=== PATIENT | male | born 1945 | race Caucasian/White ===

== ENCOUNTER → 2018-05-07 15:25 | Outpatient (CLI) | payer MEDICARE, OTHER, SELFPAY ==
--- NOTE | 2018-05-07 | DI.MRI.S_ITS ---
PROCEDURE: MR BRAIN (IAC) WWO CON INDICATIONS: ASSYMETRICAL HEARING LOSS TECHNIQUE: Noncontrast sagittal T1 spin echo, axial FLAIR, axial gradient echo, axial diffusion and ADC through the brain. Axial thin-slice 3D CISS, coronal TruFISP, axial T1 spin echo with fat saturation through the internal auditory canals. After the administration of contrast, thin slice axial and coronal T1 spin echo with fat saturation through the internal auditory canals, and axial T1 spin echo with fat saturation through the brain. COMPARISON: None. FINDINGS: Image quality: Excellent. Cerebellopontine angles: No cerebellopontine angle masses. Inner ear structures appear normally formed. No suspicious enhancement in the internal auditory canal or along the course of the 7th cranial nerve. CSF spaces: Ventricles are normal in size and shape. No extra-axial fluid collections. Basal cisterns are patent. Brain: No intracranial bleeds or mass effects. An-white matter interface is intact. No abnormal intracranial enhancement. Thorax muscle ischemic change is seen. Age-appropriate brain parenchymal volume loss can be seen. Diffusion weighted images demonstrate no acute ischemic insults. Brainstem appears normal. Normal intravascular flow voids are present. Skull and face: There is a scalp defect incidentally noted superiorly and posteriorly on the right, as on series 9 image 10. Calvarial marrow signal is normal. Orbits appear normal. Sinuses: Sinuses and mastoids are clear. IMPRESSION: No significant intracranial abnormality is seen. Specifically, no masses or abnormal enhancement are seen within the cerebellopontine angle cisterns or within the internal auditory canals. Note is made of age-appropriate brain parenchymal volume loss and chronic small vessel ischemic changes. A scalp defect is incidentally noted superiorly and posteriorly on the right. Dictated by: Chan Colbert M.D. on 05/07/2018 at 16:40 Approved by: Chan Colbert M.D. on 05/07/2018 at 16:42
[2018-05-07 16:07] LABS: BUN Creatinine Ratio 16.7 (6-22); Blood Urea Nitrogen 20 mg/dL (9-20); Estimated Glomerular Filt Rate 59.7 mL/min (>60)
== END ==
PROVIDERS: PCP Physician Assistant Medical; Visit Provider Otolaryngology
DX: H91.8X9 Other specified hearing loss, unspecified ear (principal)
CPT/HCPCS: 36415; 70553; 82565; 84520

== ENCOUNTER → 2018-08-10 12:51 | Outpatient (CLI) | payer MEDICARE, OTHER, SELFPAY ==
--- NOTE | 2018-08-10 | DI.MRI.S_ITS ---
PROCEDURE: MR ELBOW RT WO CON INDICATIONS: RIGHT WRIST PAIN, LATERAL EPICONDYLITIS RIGHT TECHNIQUE: Noncontrast coronal proton density fast spin echo and T2 fast spin echo with fat saturation, axial and sagittal T1 spin echo and T2 fast spin echo with fat saturation through the elbow. COMPARISON: [facility] [place], CR, XR ELBOW 1 OR 2 VIEWS RIGHT, 09/10/2017, 9:11. FINDINGS: Image quality: Excellent. Lateral structures: The lateral ulnar collateral ligament and radial collateral ligament both appear intact. Thickened common extensor tendon origin at the lateral epicondyle is seen with internal fluid signals suggestive of tendinosis and low-grade intrasubstance partial-thickness tear Medial structures: The ulnar collateral ligament appears intact. The overlying common flexor tendon appears normal. The ulnar nerve appears normal in size and signal within the cubital tunnel. Anterior structures: The biceps and brachialis tendons both appear intact as they insert onto the proximal radius and ulna, respectively. No bicipitoradial bursal fluid. The median and radial neurovascular bundles appear normal; no focal muscle atrophy to suggest nerve impingement. Posterior structures: The conjoint triceps tendon from the long and lateral heads appears intact. The medial head of the triceps tendon also appears normal, with direct muscle insertion onto the olecranon. Small amount of fluid distending the olecranon bursa is seen with surrounding soft tissue edema concerning for mild olecranon bursitis. Bone and cartilage: No bone marrow contusions or fractures. No osteochondral injuries. IMPRESSION: 1. Tendinosis and low-grade intrasubstance partial-thickness tear involving the common extensor tendon origin, consistent with lateral epicondylitis. Lateral collateral ligaments are intact. 2. Mild fluid distention of olecranon bursa suggestive of mild lacunar bursitis. 3. No marrow signal abnormality. No fracture or dislocation. Dictated by: Mati Shaffer M.D. on 08/10/2018 at 15:33 Approved by: Mati Shaffer M.D. on 08/10/2018 at 15:40
--- NOTE | 2018-08-10 | DI.MRI.S_ITS ---
PROCEDURE: MR WRIST RT WO CON INDICATIONS: RIGHT WRIST PAIN, LATERAL EPICONDYLITIS RIGHT TECHNIQUE: Noncontrast coronal proton density fast spin echo and T2 fast spin echo with fat saturation; coronal 3-D gradient echo, axial T1 spin echo and T2 fast spin echo with fat saturation, sagittal T1 spin echo through the wrist. COMPARISON: None. FINDINGS: Image quality: Excellent. Bones and cartilage: The carpal bones are normally aligned. No bone marrow contusions or fractures. No evidence for avascular necrosis. Osteoarthritic changes are noted throughout wrist joints particularly along radial aspect. Carpal ligaments: The scapholunate and lunotriquetral ligaments appear intact. In the absence of intra-articular contrast, the extrinsic carpal ligaments are not well identified. On sagittal images, the pisohamate ligament appears intact. Triangular fibrocartilage complex: Signal abnormality involving ulnar aspect of regular fibrocartilage complex near its ulnar insertion is seen concerning for a focal tear in this region. The adjacent meniscal homolog appears normal in the absence of intra-articular contrast. The extensor carpi ulnaris tendon is normal in location and morphology. Tendons and soft tissues: The carpal tunnel structures appear normal, including the median nerve. The ulnar nerve appears normal within Guyon's canal. All six extensor tendon compartments demonstrate normal morphology, without pathologic tendon sheath fluid. No soft tissue ganglion cysts. IMPRESSION: 1. Finding may represent subtle focal tear involving the medial aspect of the triangular fibrocartilage complex near its ulnar insertion. 2. Wrist tendons and ligaments are grossly intact. 3. No wrist fracture or dislocation. No marrow edema. Osteoarthritic changes throughout wrist joints particularly along radial aspect. Dictated by: Mati Shaffer M.D. on 08/10/2018 at 15:25 Approved by: Mati Shaffer M.D. on 08/10/2018 at 15:33
== END ==
PROVIDERS: PCP Physician Assistant Medical; Referring Provider Family Medicine; Visit Provider Physician Assistant Medical
DX: M25.531 Pain in right wrist (principal); M77.11 Lateral epicondylitis, right elbow; M19.031 Primary osteoarthritis, right wrist
CPT/HCPCS: 73221

== ENCOUNTER → 2018-08-13 08:32 | Outpatient (CLI) | payer MEDICARE, OTHER, SELFPAY ==
--- NOTE | 2018-08-13 | DI.ECHO.S_ITS ---
[facility]---------+ [facility] +---------+ : : [address] : : : : [phone] : : : : Phone: [phone]+ Echocardiogram Report + + :Name: YOKO ARTIS Study Date: 08/13/2018 Height: 70 in : :[facility] Weight: 160 lb : : Gender: Male BSA: 1.9 m2 : :: 1945 Age: 73 yrs BP: 132/80 mmHg: :Reason For Study: Arrhythmia, SVT : : Performed By: Deepthi Gutierrez : :Referring: MARTHA WOOTEN : + + Interpretation Summary The left ventricle is normal in size, wall thickness, and systolic function without any focal wall motion abnormalities with the ejection fraction visually estimated to be 55-60%. There has been no significant change since the previous study. Diastolic parameters suggest a relaxation abnormality of the left ventricle, new compared to the previous study, but still consistent with probable normal filling pressures. The right ventricle grossly appears normal in size with probable normal systolic function and his unchanged compared to the previous study. The right ventricular systolic pressure is estimated to be at least 29 mmHg based on an estimated right atrial pressure of 3 mm Hg, and is unchanged compared to the previous study. The left atrium is borderline dilated while right atrial size is normal and both are unchanged compared to the previous study. There is mild mitral regurgitation that is unchanged compared to the previous study but there is no other significant valvular heart disease. The ascending aorta is moderate-severely enlarged and measures 4.6 cm which is mildy increased from last exam at 4.4 cm although there were limited views due to the patients lung infiltration. The aortic arch is mild-moderately enlarged and also measures slightly larger compared to the previous study. Procedure: A two-dimensional transthoracic echocardiogram with color flow and Doppler was performed. The study quality was technically adequate. Comparison is made with the echocardiogram of 07-02-17. The patient was in normal sinus rhythm during the exam. Left Ventricle: The left ventricle is normal in size, wall thickness, and systolic function without any focal wall motion abnormalities. The ejection fraction is estimated to be 55-60%. There has been no significant change since the previous study. Diastolic parameters suggest a relaxation abnormality of the left ventricle, consistent with probable normal filling pressures. This is new compared to the previous study. Right Ventricle: The right ventricle grossly appears normal in size with probable normal systolic function. This is unchanged compared to the previous study. Atria: The left atrium is borderline dilated. Right atrial size is normal. This is unchanged compared to the previous study. The interatrial septum is intact with no evidence for an atrial septal defect. Mitral Valve: The mitral valve is normal in structure and function. There is mild mitral regurgitation. This is unchanged compared to the previous study. Aortic Valve: The aortic valve is not well visualized. There is mild aortic valve sclerosis. The aortic valve opens well. There is no aortic valve stenosis. No aortic regurgitation is present. Tricuspid Valve: The tricuspid valve leaflets are thin and pliable. There is trace tricuspid regurgitation. This is unchanged compared to the previous study. The right ventricular systolic pressure is estimated to be at least 29 mmHg based on an estimated right atrial pressure of 3 mm Hg. Pulmonic Valve: The pulmonic valve is not well visualized. There is no other significant valvular heart disease. Great Vessels: The aortic root is normal size. The ascending aorta is moderate-severely enlarged. Ascending aorta measures 4.6 cm which is mildy increased from last exam at 4.4 cm. There were limited views due to the patients lung infiltration. The aortic arch is mild-moderately enlarged. This is also measures slightly larger compared to the previous study. The IVC is of normal diameter and collapses greater than 50% with a sniff. This suggests a low right atrial pressure of 3 mm Hg. Pericardium/ Pleura There is no pericardial effusion. There is no pleural effusion. MMode/2D Measurements & Calculations LVIDd: 4.5 cm Ao root diam: 3.5 cm LVIDs: 2.6 cm Aortic Jxn: 3.3 cm FS: 42.2 % asc Aorta Diam: 4.5 cm IVSd: 0.88 cm Ao Arch Diam (Prox Trans): 3.5 cm LVPWd: 0.79 cm LV lanlgey. diameter/BSA (cm/m^2): 2.4 LV sys. diameter/BSA (cm/m^2): 1.4 LA dimension: 4.1 cm RA long axis: 4.8 cm LA A2 area: 20.3 cm2 RA area: 17.0 cm2 LA A4 area: 17.7 cm2 RA vol: 51.5 ml LA length (vol): 5.2 cm RA : 27.1 ml/m2 LA vol: 59.4 ml IVC diam: 1.4 cm LA vol index: 31.3 ml/m2 RVDd major: 5.9 cm RVD1 (basal): 3.3 cm RVD2 (mid): 2.4 cm Doppler Measurements & Calculations Ao V2 max: 183.4 cm/sec MV E max elgin: 53.9 cm/sec Ao V2 mean: 120.8 cm/sec MV A max elgin: 75.9 cm/sec Ao max P.5 mmHg MV E/A: 0.71 Ao mean P.8 mmHg Med Peak E' Elgin: 7.9 cm/sec Ao V2 VTI: 39.5 cm E/E' med: 6.8 Lat Peak E' Elgin: 8.9 cm/sec E/E' lat: 6.0 E/e' average: 6.4 MV dec time: 0.38 sec MV P1/2t: 110.8 msec TR max elgin: 253.8 cm/sec MV P1/2t max elgin: 53.5 cm/sec TR max P.8 mmHg MVA(P1/2t): 2.0 cm2 Reading Physician:KATELYNN
== END ==
PROVIDERS: PCP Physician Assistant Medical; Referring Provider Family Medicine; Visit Provider Internal Medicine Cardiovascular Disease
DX: I47.1 Supraventricular tachycardia (principal); I08.0 Rheumatic disorders of both mitral and aortic valves
CPT/HCPCS: 93306; 99213

== ENCOUNTER → 2018-08-20 09:46 | Outpatient (CLI) | payer MEDICARE, OTHER, SELFPAY ==
--- NOTE | 2018-08-20 09:51 | DI.RAD.S_ITS ---
PROCEDURE: XR LUMBAR SPINE MIN 4V INDICATIONS: Lumbosacral spondylosis post елена TECHNIQUE: 5 views of the lumbar spine were acquired. COMPARISON: [facility] [place], CR, SPINE LUMB 2 OR 3VW, 11/04/2013, 13:32. FINDINGS: Bones: 5 nonrib-bearing vertebrae are present. Redemonstration of levocurvature of the upper lumbar spine. No acute vertebral body compression fractures. Multilevel lumbar spondylosis with degenerative endplate changes and endplate osteophyte formation most pronounced at T12-L1, L1-L2, L2-L3, and L5-S1. Surgical clips are again noted adjacent to the right lateral margin of the L2 vertebral body. No suspicious bony lesions. Soft tissues: Overlying bowel gas pattern is normal. No suspicious soft tissue calcifications. Oblique images: No pars defects. IMPRESSION: Multilevel lumbar spondylosis. No acute osseous abnormalities. Dictated by: Aroldo Juarez M.D. on 08/20/2018 at 10:30 Approved by: Aroldo Juarez M.D. on 08/20/2018 at 10:34
--- NOTE | 2018-08-20 09:51 | DI.RAD.S_ITS ---
PROCEDURE: XR KNEE LT 3V INDICATIONS: Left Knee degenerative joint disease TECHNIQUE: 3 views of the knee were acquired. COMPARISON: None. FINDINGS: Bones: No fractures or dislocations. Minimal tricompartmental degenerative change most pronounced in the medial and patellofemoral compartments. No suspicious bony lesions. Soft tissues: No joint effusion. No suspicious soft tissue calcifications. IMPRESSION: Minimal tricompartmental osteoarthrosis of the left knee most pronounced in the medial and patellofemoral compartments. Dictated by: Aroldo Juarez M.D. on 08/20/2018 at 10:26 Approved by: Aroldo Juarez M.D. on 08/20/2018 at 10:29
== END ==
PROVIDERS: Family Provider Family Medicine; PCP Physician Assistant Medical; Visit Provider Physical Medicine & Rehabilitation
DX: M47.817 Spondylosis without myelopathy or radiculopathy, lumbosacral region (principal); M47.816 Spondylosis without myelopathy or radiculopathy, lumbar region; M17.12 Unilateral primary osteoarthritis, left knee; M96.1 Postlaminectomy syndrome, not elsewhere classified
CPT/HCPCS: 72110; 73562

== ENCOUNTER → 2018-11-17 09:16 | Outpatient (CLI) | payer MEDICARE, OTHER, SELFPAY ==
--- NOTE | 2018-11-17 | DI.CT.S_ITS ---
PROCEDURE: CT ABDOMEN PELVIS W CON INDICATIONS: ABDOMINAL PAIN/SUPRAPUBIC TECHNIQUE: After the administration of oral and intravenous contrast, 5 mm thick sections acquired from the diaphragms to the symphysis. 5 mm thick coronal and sagittal reformats were performed. For radiation dose reduction, the following was used: automated exposure control, adjustment of mA and/or kV according to patient size. COMPARISON: [facility], , PELVIS WITHOUT CONTRAST, 11/09/2007, 16:42. FINDINGS: Image quality: Excellent. ABDOMEN: Lung bases: There is mild scarring and atelectasis in the lung bases. Heart size is normal. Solid organs: There is a small hypodensity in the left hepatic lobe measuring up to 0.6 cm which is too small to characterize but likely represents a cyst. Gallbladder appears within normal limits without calcified gallstones. Biliary system is non-dilated. There is a small hypoattenuating cystic lesion within the uncinate process of the pancreas measuring up to 0.8 cm. Spleen is normal in size and enhancement. No adrenal nodules. Kidneys are normal in size and enhancement, without hydronephrosis. Peritoneum and bowel: Stomach and small bowel loops are normal in caliber and wall thickness. There is colonic diverticulosis. Mild segmental wall thickening with pericolonic fat stranding is demonstrated in the sigmoid colon consistent with a segmental colitis, likely secondary to diverticulitis. No diverticular abscess or macroscopic free air. Moderate colonic stool distention noted suggestive of constipation. No evidence of mechanical obstruction. Nodes and vessels: No retroperitoneal or mesenteric adenopathy. Aorta and inferior vena cava are normal in caliber. Miscellaneous: No ventral hernias. PELVIS: Genitourinary: Bladder wall thickness is normal. There is heterogeneous enlargement of the prostate. Miscellaneous: No inguinal hernias or adenopathy. Bones: No suspicious bony lesions. No vertebral body compression fractures. IMPRESSION: 1. Sigmoid diverticulitis without evidence of diverticular abscess or macroscopic free air. 2. 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 Recommend followup CT in 12 months. Findings discussed with YAN Conn on 11/17/18 at 11 AM. Dictated by: Glenn Corley M.D. on 11/17/2018 at 10:58 Approved by: Glenn Corley M.D. on 11/17/2018 at 11:05
== END ==
PROVIDERS: Family Provider Family Medicine; PCP Physician Assistant Medical; Visit Provider Physician Assistant Medical
DX: R10.30 Lower abdominal pain, unspecified (principal); K57.32 Diverticulitis of large intestine without perforation or abscess without bleeding
CPT/HCPCS: 74177

== ENCOUNTER → 2019-08-17 07:55 | Outpatient (CLI) | payer MEDICARE, SELFPAY ==
--- NOTE | 2019-08-17 | DI.ECHO.S_ITS ---
[facility]---------+ [facility] +---------+ : : [address] : [address] : : : : [phone] : : : : Phone: [phone]+ Echocardiogram Report + + :Name: YOKO ARTIS Study Date: 08/17/2019 Height: 70 in : :[facility] Weight: 170 lb : : Gender: Male BSA: 1.9 m2 : :: 1945 Age: 74 yrs BP: 134/90 mmHg: :Reason For Study: ASCENDING AORTA DILITATION : :Ordering Physician: Jalyn Valle M.D. : :[place] Performed By: LRF : :Referring: Dr. Sinan Maxwell : + + Interpretation Summary The left ventricle is normal in size and wall thickness. The ejection fraction is estimated to be 60-65%. There has been no significant change in LVEF since the previous study. The right ventricle is normal in size and function. There is mild mitral regurgitation. Compared to the prior echo study, there has been no change in the severity of mitral regurgitation. In previous study aortic valve was not well visualized. In this study aortic valve appears to be bicuspid. No aortic stenosis. No aortic regurgitation is present. The ascending aorta is moderate-severely enlarged. 4.7 cm in diameter. In August 13, 2018 it was 4.6 cm. June 2017 it was 4.4 cm. Procedure: A two-dimensional transthoracic echocardiogram with color flow and Doppler was performed. Comparison is made with the echocardiogram of 08/13/2018. The study quality was technically adequate. The patient was in sinus bradycardia with heart rates between 47-52 bpm during the exam. Left Ventricle: The left ventricle is normal in size and wall thickness. There is no thrombus. A false chord is noted (normal variant). The ejection fraction is estimated to be 60-65%. There has been no significant change since the previous study. There are no focal wall motion abnormalities. Diastolic parameters suggest a relaxation abnormality of the left ventricle, consistent with probable normal filling pressures. Right Ventricle: The right ventricle is normal in size and function. Atria: Both atria are normal in size. There has been no significant change since the previous study. There is no Doppler evidence for an interatrial shunt. Mitral Valve: The mitral valve is normal in structure and function. Redundant elongated chordae are noted. There is mild mitral regurgitation. Compared to the prior echo study, there has been no change in the severity of mitral regurgitation. Aortic Valve: The aortic valve is bicuspid. There is mild aortic valve sclerosis. The aortic valve opens well. There is no aortic valve stenosis. No aortic regurgitation is present. Tricuspid Valve: The tricuspid valve is normal in structure and function. There is trace tricuspid regurgitation. Pulmonary artery pressures cannot be estimated because of the lack of a measurable TR jet velocity. Pulmonic Valve: The pulmonic valve is not well visualized. There is no pulmonic valvular regurgitation. Great Vessels: The aortic root is normal size. The ascending aorta is moderate-severely enlarged. The IVC is of normal diameter and collapses greater than 50% with a sniff. This suggests a low right atrial pressure of 3 mm Hg. MMode/2D Measurements & Calculations LVIDd: 4.9 cm LVOT diam: 2.1 cm LVIDs: 3.3 cm Ao root diam: 3.9 cm FS: 34.1 % Aortic Jxn: 3.5 cm EPSS: 0.47 cm asc Aorta Diam: 4.7 cm IVSd: 1.0 cm LVPWd: 1.0 cm LV langley. diameter/BSA (cm/m^2): 2.5 LV sys. diameter/BSA (cm/m^2): 1.7 LA A2 area: 21.0 cm2 RA long axis: 4.7 cm LA A4 area: 15.2 cm2 RA area: 15.7 cm2 LA length (vol): 4.5 cm RA vol: 44.4 ml LA vol: 60.4 ml RA : 22.8 ml/m2 LA vol index: 31.0 ml/m2 IVC diam: 1.9 cm RVD1 (basal): 3.4 cm RVD2 (mid): 2.9 cm TAPSE: 2.7 cm Doppler Measurements & Calculations Ao V2 max: 181.0 cm/sec LVOT Max Elgin: 99.0 cm/sec Ao V2 mean: 123.8 cm/sec LV V1 max P.9 mmHg Ao max P.1 mmHg LV V1 VTI: 25.2 cm Ao mean P.1 mmHg DIETER(I,D): 1.8 cm2 Ao V2 VTI: 48.5 cm DIETER(V,D): 1.9 cm2 sev ratio: 0.52 DIETER indexed to BSA (cm^2/m^2): 0.93 MV E max elgin: 55.5 cm/sec PA V2 max: 61.1 cm/sec MV A max elgin: 59.1 cm/sec PA V2 mean: 42.0 cm/sec MV E/A: 0.94 PA mean P.81 mmHg Med Peak E' Elgin: 5.1 cm/sec PA pr(Accel): 12.5 mmHg E/E' med: 11.0 Lat Peak E' Elgin: 8.0 cm/sec E/E' lat: 6.9 E/e' average: 8.9 MV dec time: 0.29 sec MV P1/2t: 85.3 msec MV P1/2t max elgin: 55.2 cm/sec SV(LVOT): 87.8 ml MVA(P1/2t): 2.6 cm2 Reading Physician:06:07 PM
== END ==
PROVIDERS: Family Provider Family Medicine; PCP Family Medicine; Referring Provider Internal Medicine Cardiovascular Disease; Visit Provider Internal Medicine Cardiovascular Disease
DX: I08.0 Rheumatic disorders of both mitral and aortic valves (principal); I77.810 Thoracic aortic ectasia; R00.1 Bradycardia, unspecified
CPT/HCPCS: 93306

== ENCOUNTER → 2020-03-13 09:43 | Outpatient (CLI) | payer MEDICARE, SELFPAY ==
--- NOTE | 2020-03-13 09:45 | DI.RAD.S_ITS ---
PROCEDURE: XR CERVICAL SPINE 4V OR 5V INDICATIONS: Cervical radiculopathy TECHNIQUE: 5 views of the cervical spine acquired. COMPARISON: None. FINDINGS: Bones: No fractures or dislocations to the C7-T1 level. Degenerative endplate changes and decreased intervertebral disc space at C4-5 through C6-7 levels are seen. Oblique images demonstrate right-sided bony foraminal stenosis at C4-5 and C5-6 levels and left-sided bony foraminal stenosis at C5-6 and C6-7 levels. Soft tissues: No prevertebral soft tissue swelling. IMPRESSION: Degenerative disc disease in mid to lower cervical spine with bilateral bony foraminal stenosis as above. No acute fracture or dislocation. Dictated by: Mati Shaffer M.D. on 03/13/2020 at 10:17 Approved by: Mati Shaffer M.D. on 03/13/2020 at 10:18
--- NOTE | 2020-03-13 09:45 | DI.RAD.S_ITS ---
PROCEDURE: XR KNEE RT 3V INDICATIONS: knee djd TECHNIQUE: 3 views of the knee were acquired. COMPARISON: [facility] [place], CR, XR KNEE ARTHRITIC SERIES BI, 05/14/2017, 7:48. [facility], CR, XR KNEE LT 3V, 08/20/2018, 10:06. FINDINGS: Bones: No acute fractures or dislocations. Stable appearance of moderate tricompartmental osteoarthrosis of the right knee. Stable appearance of chondrocalcinosis of the lateral femoral tibial compartment. No suspicious bony lesions. Soft tissues: No joint effusion. No suspicious soft tissue calcifications. IMPRESSION: Stable radiographic appearance of moderate tricompartmental osteoarthrosis of the right knee. Dictated by: Aroldo Juarez M.D. on 03/13/2020 at 14:56 Approved by: Aroldo Juarez M.D. on 03/13/2020 at 15:02
== END ==
PROVIDERS: Family Provider Family Medicine; PCP Family Medicine; Referring Provider Physical Medicine & Rehabilitation; Visit Provider Physical Medicine & Rehabilitation
DX: M50.121 Cervical disc disorder at C4-C5 level with radiculopathy (principal); M48.02 Spinal stenosis, cervical region; M17.11 Unilateral primary osteoarthritis, right knee; M77.11 Lateral epicondylitis, right elbow; M96.1 Postlaminectomy syndrome, not elsewhere classified; Z90.5 Acquired absence of kidney
CPT/HCPCS: 72050; 73562; 99214

== ENCOUNTER → 2020-03-21 13:09 | Outpatient (CLI) | payer MEDICARE, SELFPAY ==
--- NOTE | 2020-03-21 13:11 | DI.MRI.S_ITS ---
PROCEDURE: MR CERVICAL SPINE WO CON INDICATIONS: Cervical radiculopathy TECHNIQUE: Noncontrast sagittal T1 spin echo and T2 fast spin echo, sagittal STIR, foraminal oblique sagittal T2 fast spin echo, and axial gradient echo or T2 fast spin echo through the cervical spine. COMPARISON: [facility], , C-SPINE WITHOUT CONTRAST, 12/19/2015, 6:56. FINDINGS: Image quality: Excellent. Alignment and Curvature: There is mild, grade 1 retrolisthesis of C6 on C7. Bone Marrow: Marrow demonstrates normal overall signal. There is mild reactive signal within the endplates adjacent to the C2-C3, C3-C4, C5-C6, C6-C7, and C7-T1 intervertebral discs. Spinal Cord: Visualized spinal cord has normal size and signal. No cerebellar tonsillar herniation. Paraspinous Soft Tissues: No paravertebral masses. Prevertebral soft tissues are normal in thickness. C2-C3: Moderate disc desiccation. Mild diffuse disc bulge. Mild facet and uncovertebral hypertrophy bilaterally. Mild canal stenosis. Mild bilateral foraminal stenosis. No change. C3-C4: Moderate disc desiccation. Mild facet and uncovertebral hypertrophy bilaterally. Mild canal stenosis. Moderate right and severe left foraminal stenosis. Left C4 nerve root compression. No change. C4-C5: Moderate disc desiccation. Mild diffuse disc bulge. Moderate facet and uncovertebral hypertrophy bilaterally. Mild canal stenosis. Moderate bilateral foraminal stenosis. No change. C5-C6: Moderate disc desiccation. Mild disc height loss. Mild diffuse disc bulge. Moderate facet and uncovertebral hypertrophy bilaterally. Mild canal stenosis. Severe left and moderate right foraminal stenosis. Left C6 nerve root compression. No change. C6-C7: Moderate disc height loss and desiccation. Mild diffuse disc bulge. Moderate facet and uncovertebral hypertrophy bilaterally. Mild canal stenosis. Moderate bilateral foraminal stenosis. No change. C7-T1: Moderate disc height loss and desiccation. Mild diffuse disc bulge. Mild facet and uncovertebral hypertrophy bilaterally. Mild canal stenosis. Moderate bilateral foraminal stenosis. No change. IMPRESSION: 1. Multilevel degenerative disc and facet disease, as well as uncovertebral hypertrophy. 2. Mild multilevel canal stenosis. 3. Multilevel foraminal stenoses, worst at C3-C4 and C5-C6, where there is associated intraforaminal nerve root compression. Recommend correlation with clinical symptoms to ascertain relevance of these findings. Dictated by: Mabel Oneal M.D. on 03/21/2020 at 15:09 Approved by: Mabel Oneal M.D. on 03/21/2020 at 15:16
== END ==
PROVIDERS: Family Provider Family Medicine; PCP Family Medicine; Referring Provider Physical Medicine & Rehabilitation; Visit Provider Physical Medicine & Rehabilitation
DX: M50.11 Cervical disc disorder with radiculopathy, high cervical region (principal); M48.02 Spinal stenosis, cervical region
CPT/HCPCS: 72141

== ENCOUNTER → 2020-04-27 09:04 | Outpatient (CLI) | payer MEDICARE, SELFPAY ==
[2020-04-27 10:16] LABS: Hematocrit 45.7 % (41-53); Hemoglobin 15.3 g/dL (13.5-17.5); Mean Corpuscular HGB Conc 33.4 % (30-36); Mean Corpuscular Hemoglobin 28.7 PG (26-34); Mean Corpuscular Volume 85.9 fL (80-100); Platelet Count 149 X10^3/uL (150-400); Red Blood Cell Count 5.32 X10^6/uL (4.5-5.9); Red Cell Distribution Width 13.8 % (11.6-14.8); White Blood Cell Count 4.6 X10^3/uL (4.5-11.0)
[2020-04-27 10:23] LABS: Hemoglobin A1C% w Est Avg Glu 5.4 % (4.0-6.0)
[2020-04-27 10:27] LABS: Alanine Aminotransferase 15 IU/L (<50); Albumin 4.2 g/dL (3.5-5.0); Albumin Globulin Ratio 1.7 (1.0-2.8); Alkaline Phosphatase 59 U/L (38-126); Aspartate Aminotransferase 24 IU/L (17-59); BUN Creatinine Ratio 17.3 (6-22); Bilirubin Total 0.9 mg/dL (0.2-1.3); Blood Urea Nitrogen 22 mg/dL (9-20); Calcium 9.4 mg/dL (8.4-10.2); Carbon Dioxide 30 mmol/L (22-32); Chloride 106 mmol/L (98-107); Cholesterol 167 mg/dL (140-199); Estimated Glomerular Filt Rate 55.6 mL/min (>60); Globulin 2.5 g/dL (1.7-4.1); Glucose 100 mg/dL (80-110); HDL Cholesterol 53 mg/dL (40-60); HEMOLYSIS < 15 (0-50); LDL Cholesterol Calculated 96 mg/dL (<100); Potassium 4.3 mmol/L (3.4-5.1); Sodium 142 mmol/L (137-145); Total Protein 6.7 g/dL (6.3-8.2); Triglycerides 91 mg/dL (35-150)
[2020-04-28 10:29] LABS: PSA Free % 26.1 % (.); PSA, Total 8.5 ng/mL (0.0-4.0)
== END ==
PROVIDERS: Family Provider Family Medicine; PCP Family Medicine; Referring Provider Family Medicine; Visit Provider Family Medicine
DX: R97.20 Elevated prostate specific antigen [PSA] (principal); I10 Essential (primary) hypertension; N28.9 Disorder of kidney and ureter, unspecified
CPT/HCPCS: 36415; 80053; 80061; 83036; 84153; 84154; 85027

== ENCOUNTER → 2020-10-12 09:10 | Outpatient (CLI) | payer MEDICARE, SELFPAY ==
--- NOTE | 2020-10-12 09:11 | DI.RAD.S_ITS ---
PROCEDURE: XR KNEE RT 3V INDICATIONS: RIGHT KNEE PAIN TECHNIQUE: 3 views of the knee were acquired. COMPARISON: [facility], , XR KNEE RT 3V, 03/13/2020, 9:45. FINDINGS: Bones: No fractures or dislocations. 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 No suspicious bony lesions. No patellar subluxation. Soft tissues: No significant joint effusion. Chondrocalcinosis in medial and lateral femoral tibial compartments are also seen. 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 Chondrocalcinosis in medial and lateral femoral tibial compartments. No significant joint effusion. Dictated by: Mati Shaffer M.D. on 10/12/2020 at 9:29 Approved by: Mati Shaffer M.D. on 10/12/2020 at 9:30
== END ==
PROVIDERS: Family Provider Family Medicine; PCP Family Medicine; Referring Provider Physical Medicine & Rehabilitation; Visit Provider Physical Medicine & Rehabilitation
DX: M17.11 Unilateral primary osteoarthritis, right knee (principal)
CPT/HCPCS: 73562

== ENCOUNTER → 2020-10-27 09:18 | Outpatient (CLI) | payer MEDICARE, SELFPAY ==
[2020-10-27 09:52] LABS: BUN Creatinine Ratio 12.8 (6-22); Blood Urea Nitrogen 17 mg/dL (9-20); Estimated Glomerular Filt Rate 52.7 mL/min (>60)
--- NOTE | 2020-10-27 10:38 | DI.CT.S_ITS ---
PROCEDURE: CT ABDOMEN W CON INDICATIONS: Abnormal findings on diagnostic imaging of other abdominal r TECHNIQUE: After the administration of intravenous contrast, 5 mm thick sections acquired from the diaphragm to the iliac crests. 5 mm coronal and sagittal reformats were performed. For radiation dose reduction, the following was used: automated exposure control, adjustment of mA and/or kV according to patient size. COMPARISON: [facility], CT, CT ABDOMEN PELVIS W CON, 11/17/2018, 10:39. FINDINGS: Image quality: Excellent. Lung bases: Lung bases are clear. Heart size is normal. Solid organs: Liver is normal in size and enhancement. Gallbladder appears normal . Biliary system is non dilated. Pancreas enhances normally, and again noted is the posterior uncinate process margin hypodensity that is triangular and measures 7-8 mm in maximal dimension. This has not enlarged and no side branch dilatation of a pancreatic duct or dilatation of the main pancreatic duct is found. Spleen is normal in size and enhancement. No adrenal nodules. The left kidney demonstrates normal size and enhancement, without hydronephrosis. The right kidney is surgically absent. There is a 8 mm calcification within the mid left renal collecting system, nonobstructive. Peritoneum and bowel: Bowel loops demonstrate normal wall thickness and caliber. No free fluid or air. Nodes and vessels: No retroperitoneal or mesenteric adenopathy by size criteria. Aorta and inferior vena cava are normal in size. Miscellaneous: No ventral hernias. 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 Other structures could produce this appearance also. IPMN follow-up at this point would be 10 years of follow-up every 2 years, and could be performed utilizing noncontrast MR scanning technique beginning in 2 years from now Incidental note is made of a 8 mm maximal dimension renal collecting system calculus that is nonobstructive, seen at the left mid kidney. Prior right nephrectomy. Dictated by: Wilber Triana M.D. on 10/27/2020 at 15:09 Approved by: Wilber Triana M.D. on 10/27/2020 at 15:17
== END ==
PROVIDERS: Family Provider Family Medicine; PCP Family Medicine; Referring Provider Internal Medicine Gastroenterology; Visit Provider Internal Medicine Gastroenterology
DX: R93.5 Abnormal findings on diagnostic imaging of other abdominal regions, including retroperitoneum (principal); M17.0 Bilateral primary osteoarthritis of knee; M54.12 Radiculopathy, cervical region; Z90.5 Acquired absence of kidney
CPT/HCPCS: 36415; 74160; 82565; 84520; 99214; Q9967

== ENCOUNTER → 2020-11-13 09:00 | Outpatient (CLI) | payer MEDICARE, SELFPAY ==
--- NOTE | 2020-11-13 | DI.ECHO.S_ITS ---
[facility]---------+ [facility] +---------+ : : [address] [place] : : : : [id number] : : : : Phone: [phone]+ Echocardiogram Report + + :Name: YOKO ARTIS Study Date: 11/13/2020 Height: 70 in : :[facility] ReadingLocation: Weight: 165 lb : : Gender: Male BSA: 1.9 m2 : :: 1945 Age: 75 yrs BP: 142/78 mmHg: :Reason For Study: THORACIC AORTIC ECTASIA : :Ordering Physician: SUGAR, : :MARTHA Performed By: Oralia Zhu : :Referring: MARTHA WOOTEN : + + Interpretation Summary Asc Ao measuring 4.3cm in parasternal window. Asc Ao measures 4.6cm in apical 3 chamber view. August 2019 it was 4.7 cm and in July 2018, 4.6 cm in diameter. The left ventricle is normal in size and wall thickness. The ejection fraction is estimated to be 55-60%. The right ventricle is normal in size and function. There is mild to moderate mitral regurgitation. Compared to the prior echo study, there has been an increase in the severity of mitral regurgitation. The aortic valve is bicuspid. There is no aortic valve stenosis. No aortic regurgitation is present. There is mild tricuspid regurgitation. The right ventricular systolic pressure is estimated to be at least 25 mmHg based on an estimated right atrial pressure of 3 mm Hg. Procedure: A two-dimensional transthoracic echocardiogram with color flow and Doppler was performed. The study quality was technically adequate. Comparison is made with the echocardiogram of 08/17/2019. The patient was in sinus bradycardia with heart rates between 45-54 bpm during the exam. Left Ventricle: The left ventricle is normal in size and wall thickness. There is no thrombus. The ejection fraction is estimated to be 55-60%. There are no focal wall motion abnormalities. MV E/A: 1.0 Med Peak E' Elgin: 7.6 cm/sec E/E' med: 8.8. Right Ventricle: The right ventricle is normal in size and function. Atria: Both atria are normal in size. There is no Doppler evidence for an interatrial shunt. Mitral Valve: The mitral valve is normal. There is mild to moderate mitral regurgitation. Compared to the prior echo study, there has been an increase in the severity of mitral regurgitation. Aortic Valve: The aortic valve is bicuspid. There is mild aortic valve sclerosis. The aortic valve opens well. There is no aortic valve stenosis. No aortic regurgitation is present. Tricuspid Valve: The tricuspid valve is normal. There is mild tricuspid regurgitation. The right ventricular systolic pressure is estimated to be at least 25 mmHg based on an estimated right atrial pressure of 3 mm Hg. Pulmonic Valve: The pulmonic valve is not well seen, but is grossly normal. There is trace pulmonic regurgitation. Great Vessels: The aortic root is normal size. The IVC is of normal diameter and collapses greater than 50% with a sniff. This suggests a low right atrial pressure of 3 mm Hg. Pericardium/ Pleura There is no pericardial effusion. There is no pleural effusion. MMode/2D Measurements & Calculations LVIDd: 4.8 cm LVOT diam: 2.0 cm LVIDs: 3.1 cm Ao Arch Diam (Prox Trans): 2.9 cm FS: 36.3 % EPSS: 0.29 cm IVSd: 0.82 cm LVPWd: 0.93 cm LV langley. diameter/BSA (cm/m^2): 2.5 LV sys. diameter/BSA (cm/m^2): 1.6 LA A2 area: 22.5 cm2 RA long axis: 4.6 cm LA A4 area: 14.1 cm2 RA area: 16.0 cm2 LA length (vol): 4.4 cm RA vol: 47.5 ml LA vol: 61.9 ml RA : 24.7 ml/m2 LA vol index: 32.2 ml/m2 IVC diam: 2.0 cm RVD1 (basal): 2.9 cm TAPSE: 2.7 cm Doppler Measurements & Calculations Ao V2 max: 156.2 cm/sec LVOT Max Elgin: 92.3 cm/sec Ao V2 mean: 113.5 cm/sec LV V1 max P.4 mmHg Ao max P.8 mmHg LV V1 VTI: 22.0 cm Ao mean P.7 mmHg DIETER(I,D): 1.8 cm2 Ao V2 VTI: 37.3 cm DIETER(V,D): 1.8 cm2 sev ratio: 0.59 DIETER indexed to BSA (cm^2/m^2): 0.94 MV E max elgin: 66.6 cm/sec TR max elgin: 231.9 cm/sec MV A max elgin: 65.7 cm/sec TR max P.5 mmHg MV E/A: 1.0 PA pr(Accel): 41.3 mmHg Med Peak E' Elgin: 7.6 cm/sec E/E' med: 8.8 Lat Peak E' Elgin: 6.5 cm/sec E/E' lat: 10.3 E/e' average: 9.5 MV dec time: 0.24 sec SV(LVOT): 67.4 ml Reading Physician:11:11 AM
== END ==
PROVIDERS: Family Provider Family Medicine; PCP Family Medicine; Referring Provider Physician Assistant Medical; Visit Provider Internal Medicine Cardiovascular Disease
DX: I08.1 Rheumatic disorders of both mitral and tricuspid valves (principal); I77.810 Thoracic aortic ectasia
CPT/HCPCS: 93306

== ENCOUNTER → 2021-01-03 06:41 | Outpatient (CLI) | payer MEDICARE, SELFPAY ==
--- NOTE | 2021-01-03 | DI.MRI.S_ITS ---
PROCEDURE: MR STROKE Pre- and post-contrast brain MRI, non-contrast brain MR angiogram, pre- and postcontrast neck MR angiogram INDICATIONS: MR STROKE TECHNIQUE: Brain: Noncontrast axial T1 spin echo, axial T2 fast spin echo, sagittal and axial FLAIR, coronal T2 fast spin echo, axial gradient echo, axial diffusion and ADC through the brain. After the administration of contrast, axial 3D VIBE of the cranial vasculature and brain. Brain MRA: Non-contrast 3-D time of flight MR angiogram, with multiple fhhhims-uooojwnbg-qiahxwnsrz (MIP) reformats performed. Neck MRA: Axial and sagittal TruFISP through the neck. Coronal dynamic MR angiogram during administration of contrast in the arterial and venous phases, with 3-dimenstional gwtlhjw-whqvmxzwv-wdspqdfxlr (MIP) reformats constructed from subtraction images. COMPARISON: None. FINDINGS: Image quality: Excellent. BRAIN: CSF spaces: Ventricles are normal in size and shape. Basal cisterns are patent. No extra-axial fluid collections. Brain: No intracranial bleeds or mass effects. There is mild diffuse cerebral volume loss. Mild degree of patchy high FLAIR signal within the periventricular and subcortical white matter. Scattered small chronic infarcts within the bilateral periventricular and subcortical white matter of the frontal and parietal lobes predominantly. An-white matter interface is normal. Diffusion weighted images show no acute ischemic insults. Brainstem appears normal. Normal intravascular flow voids are present. No abnormal intracranial enhancement. Skull and face: Calvarial marrow signal is normal. Orbits appear normal. Sinuses: Sinuses and mastoids are clear. BRAIN MR ANGIOGRAM: Anterior circulation: Intracranial internal carotid arteries are normal in size and enhancement. The flow within the paired anterior cerebral arteries is normal and symmetric. The flow within the middle cerebral arteries is normal and symmetric. The anterior communicating artery is seen. No stenoses, occlusions, or aneurysms. Posterior circulation: The visualized portions of the vertebral arteries demonstrate normal caliber, and join to form a normal appearing basilar artery. The flow within the posterior cerebral arteries is normal and symmetric. No stenoses, occlusions, or aneurysms. NECK MR ANGIOGRAM: Carotids: Great vessels demonstrate a conventional anatomy as they arise from the aortic arch. The origins of the common carotid arteries appear patent. The calibers and courses of both common carotid arteries are normal. The bifurcation regions appear normal bilaterally. The internal carotid arteries demonstrate normal course and caliber. Posterior circulation: The origins of the vertebral arteries appear patent. More superior portions of both vertebral arteries demonstrate normal course and caliber, and join to form a normal appearing basilar artery. Miscellaneous: Subclavian arteries appear patent. Pre-contrast images through the neck show no soft tissue abnormalities. IMPRESSION: BRAIN MRI: 1. No acute intracranial abnormality. No recent infarct. 2. Volume loss and small vessel ischemic disease. BRAIN MR ANGIOGRAM: Negative cerebral MR angiography. NECK MR ANGIOGRAM: 1. No internal carotid artery stenosis bilaterally. 2. Patent bilateral vertebral arteries. Dictated by: Mabel Oneal M.D. on 01/03/2021 at 9:17 Approved by: Mabel Oneal M.D. on 01/03/2021 at 9:31
== END ==
PROVIDERS: Family Provider Family Medicine; PCP Family Medicine; Referring Provider Psychiatry & Neurology Neurology; Visit Provider Psychiatry & Neurology Neurology
DX: G45.9 Transient cerebral ischemic attack, unspecified (principal); G43.109 Migraine with aura, not intractable, without status migrainosus; G43.009 Migraine without aura, not intractable, without status migrainosus; E55.9 Vitamin D deficiency, unspecified; G25.2 Other specified forms of tremor
CPT/HCPCS: 70548; 70553

== ENCOUNTER 2021-02-23 10:56 | Observation (INO) | payer MEDICARE, SELFPAY ==
[2021-02-23] VITALS (29 sets, daily range): BP systolic 142–194; BP diastolic 68–106; PULSE 49–66; RESP 11–21; TEMP 36.6; O2SAT 92–100; BMI 23.6
[2021-02-23 11:33] LABS: Add Manual Diff / Slide Review NO; Basophils Absolute Auto 0 /uL (0-100); Basophils Percent Auto 0.7 % (0-2); Eosinophils Absolute Auto 200 /uL (0-450); Eosinophils Percent Auto 3.5 % (2-4); Hematocrit 41.7 % (41-53); Hemoglobin 13.9 g/dL (13.5-17.5); Lymphocytes Absolute Auto 1400 /uL (1100-4500); Lymphocytes Percent Auto 24.5 % (25-40); Mean Corpuscular HGB Conc 33.2 % (30-36); Mean Corpuscular Hemoglobin 28.4 PG (26-34); Mean Corpuscular Volume 85.5 fL (80-100); Monocytes Absolute Auto 600 /uL (0-900); Monocytes Percent Auto 10.1 % (3-14); Neutrophils Absolute Auto 3600 /uL (1500-7000); Neutrophils Percent Auto 61.2 % (50-75); Platelet Count 164 X10^3/uL (150-400); Red Blood Cell Count 4.88 X10^6/uL (4.5-5.9); Red Cell Distribution Width 13.7 % (11.6-14.8); White Blood Cell Count 5.8 X10^3/uL (4.5-11.0)
[2021-02-23 11:39] LABS: INR 1.1 (0.9-1.3); Prothrombin Time 12.6 SECONDS (10.1-12.7)
[2021-02-23 11:41] LABS: PTT Partial Thromboplastin Tim 52 SECONDS (26.4-36.2)
[2021-02-23 11:43] LABS: Alanine Aminotransferase 14 IU/L (<50); Albumin 3.8 g/dL (3.5-5.0); Albumin Globulin Ratio 1.5 (1.0-2.8); Alkaline Phosphatase 62 U/L (38-126); Aspartate Aminotransferase 25 IU/L (17-59); BUN Creatinine Ratio 15.3 (6-22); Bilirubin Total 0.9 mg/dL (0.2-1.3); Blood Urea Nitrogen 17 mg/dL (9-20); Calcium 9.5 mg/dL (8.4-10.2); Carbon Dioxide 24 mmol/L (22-32); Chloride 111 mmol/L (98-107); Creatine Kinase 115 U/L (55-170); Estimated Glomerular Filt Rate > 60.0 mL/min (>60); Globulin 2.6 g/dL (1.7-4.1); Glucose 108 mg/dL (80-110); HEMOLYSIS < 15 (0-50); Potassium 4.1 mmol/L (3.4-5.1); Sodium 140 mmol/L (137-145); Total Protein 6.4 g/dL (6.3-8.2)
[2021-02-23 11:55] LABS: Troponin I < 0.012 ng/mL (0.01-0.034)
[2021-02-23 11:58] LABS: CKMB % Relative Index 0.6 % (1.5-5.0); Creatine Kinase MB 0.67 ng/mL (<2.37)
--- NOTE | 2021-02-23 13:07 | DI.CT.S_ITS ---
PROCEDURE: CT HEAD/BRAIN WO CON INDICATIONS: told had a stroke, left [place] AMA. not tpa candidate. TECHNIQUE: Noncontrast 4.5 mm thick angled axial sections acquired from the foramen magnum to the vertex, with coronal and sagittal reformats. For radiation dose reduction, the following was used: automated exposure control, adjustment of mA and/or kV according to patient size. COMPARISON: MR, MR BRAIN (IAC) WWO CON, 05/07/2018, 16:29. FINDINGS: Image quality: Excellent. CSF spaces: Basal cisterns are patent. No extra-axial fluid collections. The ventricles are symmetric in size and shape. Brain: No intracranial bleeds or masses. There is cerebral volume loss for age, with resultant ventricular and sulcal prominence. There are periventricular and deep white matter chronic small vessel ischemic changes. Multifocal most of low-attenuation are noted within the right frontal lobe. There is intracranial internal carotid artery atherosclerosis. Skull and face: Calvarium and visualized facial bones appear intact, without suspicious lesions. Sinuses: Visualized sinuses and mastoids are clear. IMPRESSION: 1. Multifocal areas of low attenuation within the right frontal lobe suspected to be late subacute/early chronic ischemia. MRI may be obtained as clinically indicated for further evaluation. 2. Atrophy and chronic microvascular ischemic changes are present. Dictated by: Daniela Bahena M.D. on 02/23/2021 at 13:27 Approved by: Daniela Bahena M.D. on 02/23/2021 at 13:30
--- NOTE | 2021-02-23 13:27 | DI.MRI.S_ITS ---
PROCEDURE: MR STROKE Pre- and post-contrast brain MRI, non-contrast brain MR angiogram, pre- and postcontrast neck MR angiogram INDICATIONS: right sided weakness TECHNIQUE: Brain: Noncontrast axial T1 spin echo, axial T2 fast spin echo, sagittal and axial FLAIR, coronal T2 fast spin echo, axial gradient echo, axial diffusion and ADC through the brain. After the administration of contrast, axial 3D VIBE of the cranial vasculature and brain. Brain MRA: Non-contrast 3-D time of flight MR angiogram, with multiple ycsqlvj-iiybvjmuz-byelalttzf (MIP) reformats performed. Neck MRA: Axial and sagittal TruFISP through the neck. Coronal dynamic MR angiogram during administration of contrast in the arterial and venous phases, with 3-dimenstional cultvbk-puzkixupw-iawmjjnwmy (MIP) reformats constructed from subtraction images. COMPARISON: [facility], MR, MR BRAIN (IAC) WWO CON, 05/07/2018, 16:29. [facility], CT, CT HEAD/BRAIN WO CON, 02/23/2021, 13:15. [facility], MR, MR STROKE, 01/03/2021, 6:52. FINDINGS: Image quality: Excellent. BRAIN: CSF spaces: Ventricles are normal in size and shape. Basal cisterns are patent. No extra-axial fluid collections. Brain: There are areas abnormal diffusion-weighted signal seen involving the right deep white matter, as on series 25, image 66 and involving the left basal ganglia and the left thalamus, as on series 25, images 62 through 65. There is associated abnormal dark signal seen at these sites. There is developing T2 weighted signal seen within these regions. No intracranial bleeds or mass effects. An-white matter interface is normal. Brainstem appears normal. Normal intravascular flow voids are present. No abnormal intracranial enhancement. Brain parenchymal volume loss is seen. Numerous areas of T2 weighted hyperintensity can be seen within the periventricular and deep white matter. A few of the periventricular lesions demonstrate a perpendicular orientation to the lateral ventricles. There is involvement of the corpus callosum. Relatively prominent perivascular spaces are noted. Note is made of a cavum septum pellucidum. When discovered in isolation, this is considered to be a developmental variant of no clinical consequence. Skull and face: Calvarial marrow signal is normal. Orbits appear normal. There is a right lens replacement seen. Sinuses: Sinuses and mastoids are clear. BRAIN MR ANGIOGRAM: Anterior circulation: Intracranial internal carotid arteries are normal in size and enhancement. The flow within the paired anterior cerebral arteries is normal and symmetric. The flow within the middle cerebral arteries is normal and symmetric. The anterior communicating artery is seen. No stenoses, occlusions, or aneurysms. Posterior circulation: The visualized portions of the vertebral arteries demonstrate normal caliber, and join to form a normal appearing basilar artery. The flow within the posterior cerebral arteries is normal and symmetric. No stenoses, occlusions, or aneurysms. NECK MR ANGIOGRAM: Carotids: Great vessels demonstrate a conventional anatomy as they arise from the aortic arch. The origins of the common carotid arteries appear patent. The calibers and courses of both common carotid arteries are normal. The bifurcation regions appear normal bilaterally. The internal carotid arteries demonstrate normal course and caliber. Posterior circulation: Approximately 50% narrowing can be seen involving the origins of both vertebral arteries. More superior portions of both vertebral arteries demonstrate normal course and caliber, and join to form a normal appearing basilar artery. Miscellaneous: Subclavian arteries appear patent. Pre-contrast images through the neck show no soft tissue abnormalities. IMPRESSION: BRAIN MRI: Bilateral subacute infarctions are seen. Brain parenchymal volume loss is seen. Areas abnormal T2 weighted hyperintensity can be seen. While these are statistically most likely related to chronic small vessel ischemic change, the appearance and configuration are also be compatible with multiple sclerosis. Please correlate with underlying patient history. BRAIN MR ANGIOGRAM: No significant intracranial arterial abnormality is seen. NECK MR ANGIOGRAM: Within the arteries of the neck, no hemodynamically significant stenosis can be seen. Dictated by: Chan Colbert M.D. on 02/23/2021 at 14:37 Approved by: Chan Colbert M.D. on 02/23/2021 at 14:46
--- NOTE | 2021-02-23 13:43 | ED.NEUROSD ---
HPI - Neuro Symptoms/Deficit <Aquiles Schreiber PA-C - Last Filed: 02/23/21 20:51> General Chief Complaint: Neuro Symptoms/Deficit Stated Complaint: STROKE. DR RAO TOLD HIM TO COME IN Time Seen by Provider: 02/23/21 13:07 Source: patient Mode of arrival: Wheelchair Limitations: no limitations History of Present Illness HPI Narrative: Jacek presents today with chief complaint of right-sided arm and leg weakness that started at 8:30 p.m. last night. He reports that his symptoms were initially noted when he was getting into the car and had difficulty lifting his leg and grasping the handle of the door. He went [facility] later that evening and a CT scan was done which did not show any significant ischemic changes. He was consulted with neurology and recommended to be admitted to the hospital for further risk stratification. MRI was not able to be done until Friday so the patient elected to leave against medical advice. It does not look like any blood thinners were started on the patient at this time. He denies any significant change in his symptoms since they started yesterday evening. He is still having difficulty walking with his right leg and has slight increased weakness in his right arm. Denies any difficulty speaking, chest pain, shortness of breath, palpitations, vision changes, or any other acute concerns or complaints at this time. On Anticoagulants: No (asa) Related Data Home Medications Medication Instructions Recorded Confirmed tamsulosin 0.4 mg capsule (Flomax) 0.4 mg PO QDAY #0 12/29/16 01/01/21 carvedilol 12.5 mg tablet 12.5 mg PO .COMPLEX 08/13/18 01/01/21 aspirin 81 mg tablet,delayed 81 mg PO DAILY 01/01/21 01/01/21 release (Adult Aspirin Regimen) cholecalciferol (vitamin D3) 50 50 mcg PO DAILY 01/01/21 01/01/21 mcg (2,000 unit) capsule vitamin B complex 1 tab PO DAILY 01/01/21 01/01/21 Previous Rx's Medication Instructions Recorded amlodipine 5 mg tablet 5 mg PO DAILY #30 tab 02/24/21 atorvastatin 20 mg tablet (Lipitor) 80 mg PO BEDTIME #30 tab 02/24/21 carvedilol 12.5 mg tablet (Coreg) 12.5 mg PO BEDTIME #30 tab 02/24/21 clopidogrel 75 mg tablet 75 mg PO DAILY #21 tab 02/24/21 Allergies Allergy/AdvReac Type Severity Reaction Status Date / Time oxycillin prostaphlyn Allergy Unknown Uncoded 02/23/21 11:01 Review of Systems <Aquiles Schreiber PA-C - Last Filed: 02/23/21 20:51> Review of Systems Narrative: As per HPI Hematologic/Lymphatic On Anticoagulants: No (asa) Patient History <Aquiles Schreiber PA-C - Last Filed: 02/23/21 20:51> Medical History Cervical radiculopathy Ocular migraine Right knee DJD TIA (transient ischemic attack) Surgical History History of nephrectomy, right Family History Mother Congestive heart failure Father CVA (cerebral vascular accident) Social History household members: spouse Smoking Status: Former smoker Smoking Status: Former smoker alcohol intake frequency: holidays/special occasions only Substance Use Type: does not use Exam <Aquiles Schreiber PA-C - Last Filed: 02/23/21 20:51> Narrative Exam Narrative: Exam Narrative: Const General: cooperative, healthy appearing, comfortable, no acute distress, well developed and well groomed Nutritional Appearance: average body habitus Orientation: alert and oriented x3 HENMT Head: normal to inspection and atraumatic Ears: hearing grossly normal bilaterally Nose: external nose normal and nares normal Face and sinus: normal facial exam Neck Neck: normal visual inspection and supple Resp Effort & Inspection: normal respiratory effort, able to speak in complete sentences, no audible wheezes, not labored, no nasal flaring and no respiratory distress, clear to auscultation bilaterally Cardiac Regular rate and rhythm, no discernible murmurs, rubs or gallops. Neuro General: alert, oriented x3, cranial nerves grossly intact. No sensory deficits noted. Has impairment with finger to nose using the right arm. Stroke scale charted below and he scores a 3 due to right arm weakness, and right leg weakness. Impaired rapid alternating movement of right upper extremity. Cognition: normal cognition Speech: speech normal Psych Appearance: grossly normal and well kempt Mental Status: mental status grossly normal Speech and Movement: speech and movement normal Mood: congruent mood Affect: normal affect Initial Vital Signs Initial Vital Signs: Vital Signs Temperature 97.9 F 02/23/21 11:01 Pulse Rate 66 02/23/21 11:01 Respiratory Rate 14 02/23/21 11:01 Blood Pressure 163/96 H 02/23/21 11:01 Pulse Oximetry 96 02/23/21 11:01 <DO Constance Elizondo Last Filed: 03/02/21 07:31> Initial Vital Signs Initial Vital Signs: Vital Signs Temperature 97.9 F 02/23/21 11:01 Pulse Rate 66 02/23/21 11:01 Respiratory Rate 14 02/23/21 11:01 Blood Pressure 163/96 H 02/23/21 11:01 Pulse Oximetry 96 02/23/21 11:01 Scores <Aquiles Schreiber PA-C - Last Filed: 02/23/21 20:51> NIH Stroke Scale Level of Conciousness: Alert, keenly responsive Ask month/age: Answers both questions correctly. Open/close eyes, close hand: Performs both tasks correctly Best gaze horizontal: Normal Visual banuelos: No visual loss Facial palsy: Normal symetrical movement Left arm drift: No drift for full 10 sec Right arm drift: Drifts down, not to bed Left leg drift: No drift for full 5 sec Right leg drift: Drifts down, not to bed Limb ataxia: Present in one limb Sensory on face/arms/legs: Normal, no sensory loss Best language: No aphasia, normal Dysarthria: Normal Extinction or inattention: No abnormality Total NIH Stroke scale score: 3 <DO Constance Elizondo Last Filed: 03/02/21 07:31> NIH Stroke Scale Total NIH Stroke scale score: 3 Course <INGA Patel Last Filed: 02/23/21 20:51> Orders Ordered: Discontinued Medications Aspirin (Aspirin 325 Mg Tablet) 325 mg PO NOW ONE Stop: 02/23/21 13:53 Last Admin: 02/23/21 14:04 Dose: 325 mg Documented by: JANICE Aspirin (Aspirin Ec 81 Mg Tablet) 81 mg PO DAILY [facility] Last Admin: 02/24/21 09:26 Dose: 81 mg Documented by: IVAN Atorvastatin Calcium (Atorvastatin 20 Mg Tablet) 80 mg PO BEDTIME [facility] Last Admin: 02/23/21 20:53 Dose: Not Given Documented by: PIERRE Carvedilol (Carvedilol 12.5 Mg Tablet) 18.75 mg PO DAILY@0800 [facility] Last Admin: 02/24/21 09:24 Dose: Not Given Documented by: IVAN Carvedilol (Carvedilol 12.5 Mg Tablet) 12.5 mg PO BEDTIME [facility] Last Admin: 02/23/21 20:53 Dose: 12.5 mg Documented by: PIERRE Clopidogrel Bisulfate (Clopidogrel 75 Mg Tablet) 75 mg PO DAILY [facility] Last Admin: 02/24/21 09:27 Dose: 75 mg Documented by: IVAN Enoxaparin Sodium (Enoxaparin 40 Mg/0.4 Ml Syringe) 40 mg SUBCUT DAILY [facility] Last Admin: 02/24/21 09:27 Dose: 40 mg Documented by: IVAN Naloxone HCl (Naloxone 0.4 Mg/Ml Vial) 0.2 mg IV Q2MIN PRN PRN Reason: Opiate Reversal Tamsulosin HCl (Tamsulosin 0.4 Mg Capsule) 0.4 mg PO DAILY [facility] Last Admin: 02/24/21 09:27 Dose: 0.4 mg Documented by: IVAN Vital Signs Vital signs: Vital Signs - 8 hr 02/23/21 13:00 02/23/21 13:01 02/23/21 13:19 Pulse Rate 53 L 53 L 59 L Respiratory Rate 21 16 Blood Pressure 173/86 H 150/106 H Pulse Oximetry 97 97 98 02/23/21 13:30 02/23/21 14:03 02/23/21 14:04 Pulse Rate 51 L 56 L 60 Respiratory Rate Blood Pressure 151/91 H 173/93 H Pulse Oximetry 96 92 97 02/23/21 14:30 Pulse Rate 58 L Respiratory Rate Blood Pressure 151/91 H Pulse Oximetry 98 <Katherine Lam, - Last Filed: 03/02/21 07:31> Orders Ordered: Discontinued Medications Aspirin (Aspirin 325 Mg Tablet) 325 mg PO NOW ONE Stop: 02/23/21 13:53 Last Admin: 02/23/21 14:04 Dose: 325 mg Documented by: JANICE Aspirin (Aspirin Ec 81 Mg Tablet) 81 mg PO DAILY [facility] Last Admin: 02/24/21 09:26 Dose: 81 mg Documented by: IVAN Atorvastatin Calcium (Atorvastatin 20 Mg Tablet) 80 mg PO BEDTIME [facility] Last Admin: 02/23/21 20:53 Dose: Not Given Documented by: PIERRE Carvedilol (Carvedilol 12.5 Mg Tablet) 18.75 mg PO DAILY@0800 [facility] Last Admin: 02/24/21 09:24 Dose: Not Given Documented by: IVAN Carvedilol (Carvedilol 12.5 Mg Tablet) 12.5 mg PO BEDTIME [facility] Last Admin: 02/23/21 20:53 Dose: 12.5 mg Documented by: PIERRE Clopidogrel Bisulfate (Clopidogrel 75 Mg Tablet) 75 mg PO DAILY [facility] Last Admin: 02/24/21 09:27 Dose: 75 mg Documented by: IVAN Enoxaparin Sodium (Enoxaparin 40 Mg/0.4 Ml Syringe) 40 mg SUBCUT DAILY [facility] Last Admin: 02/24/21 09:27 Dose: 40 mg Documented by: IVAN Naloxone HCl (Naloxone 0.4 Mg/Ml Vial) 0.2 mg IV Q2MIN PRN PRN Reason: Opiate Reversal Tamsulosin HCl (Tamsulosin 0.4 Mg Capsule) 0.4 mg PO DAILY [facility] Last Admin: 02/24/21 09:27 Dose: 0.4 mg Documented by: IVAN Vital Signs Vital signs: Vital Signs - 8 hr 02/23/21 13:00 02/23/21 13:01 02/23/21 13:19 Pulse Rate 53 L 53 L 59 L Respiratory Rate 21 16 Blood Pressure 173/86 H 150/106 H Pulse Oximetry 97 97 98 02/23/21 13:30 02/23/21 14:03 02/23/21 14:04 Pulse Rate 51 L 56 L 60 Respiratory Rate Blood Pressure 151/91 H 173/93 H Pulse Oximetry 96 92 97 02/23/21 14:30 Pulse Rate 58 L Respiratory Rate Blood Pressure 151/91 H Pulse Oximetry 98 MDM - Neuro Symptoms/Deficit <Aquiles Schreiber PA-C - Last Filed: 02/23/21 20:51> Lab Data Result diagrams: 02/24/21 05:00 02/23/21 20:25 Labs: Lab Results 02/23/21 02/23/21 02/23/21 Range/Units 11:20 11:20 11:20 WBC 5.8 (4.5-11.0) X10^3/uL RBC 4.88 (4.5-5.9) X10^6/uL Hgb 13.9 (13.5-17.5) g/dL Hct 41.7 (41-53) % MCV 85.5 (80-100) fL MCH 28.4 (26-34) PG MCHC 33.2 (30-36) % RDW 13.7 (11.6-14.8) % Plt Count 164 (150-400) X10^3/uL Neut % (Auto) 61.2 (50-75) % Lymph % (Auto) 24.5 L (25-40) % [place] % (Auto) 10.1 (3-14) % Eos % (Auto) 3.5 (2-4) % Baso % (Auto) 0.7 (0-2) % Neut # (Auto) 3600 (7867-7351) /uL Lymph # (Auto) 1400 (5390-6351) /uL [place] # (Auto) 600 (0-900) /uL Eos # (Auto) 200 (0-450) /uL Baso # (Auto) 0 (0-100) /uL PT 12.6 (10.1-12.7) SECONDS INR 1.1 (0.9-1.3) APTT 52 H (26.4-36.2) SECONDS Sodium 140 (137-145) mmol/L Potassium 4.1 (3.4-5.1) mmol/L Chloride 111 H (98-107) mmol/L Carbon Dioxide 24 (22-32) mmol/L BUN 17 (9-20) mg/dL Creatinine 1.11 (0.66-1.25) mg/dL Estimated GFR > 60.0 (>60) mL/min BUN/Creatinine Ratio 15.3 (6-22) Glucose 108 (80-110) mg/dL Hemoglobin A1c (4.0-6.0) % Calcium 9.5 (8.4-10.2) mg/dL Total Bilirubin 0.9 (0.2-1.3) mg/dL AST 25 (17-59) IU/L ALT 14 (<50) IU/L Alkaline Phosphatase 62 (38-126) U/L Total Creatine Kinase 115 (55-170) U/L CK-MB (CK-2) 0.67 (<2.37) ng/mL CK-MB (CK-2) Rel Index 0.6 L (1.5-5.0) % Troponin I < 0.012 (0.01-0.034) ng/mL Total Protein 6.4 (6.3-8.2) g/dL Albumin 3.8 (3.5-5.0) g/dL Globulin 2.6 (1.7-4.1) g/dL Albumin/Globulin Ratio 1.5 (1.0-2.8) 02/23/21 Range/Units 11:20 WBC (4.5-11.0) X10^3/uL RBC (4.5-5.9) X10^6/uL Hgb (13.5-17.5) g/dL Hct (41-53) % MCV (80-100) fL MCH (26-34) PG MCHC (30-36) % RDW (11.6-14.8) % Plt Count (150-400) X10^3/uL Neut % (Auto) (50-75) % Lymph % (Auto) (25-40) % [place] % (Auto) (3-14) % Eos % (Auto) (2-4) % Baso % (Auto) (0-2) % Neut # (Auto) (7315-8773) /uL Lymph # (Auto) (5212-4931) /uL [place] # (Auto) (0-900) /uL Eos # (Auto) (0-450) /uL Baso # (Auto) (0-100) /uL PT (10.1-12.7) SECONDS INR (0.9-1.3) APTT (26.4-36.2) SECONDS Sodium (137-145) mmol/L Potassium (3.4-5.1) mmol/L Chloride (98-107) mmol/L Carbon Dioxide (22-32) mmol/L BUN (9-20) mg/dL Creatinine (0.66-1.25) mg/dL Estimated GFR (>60) mL/min BUN/Creatinine Ratio (6-22) Glucose (80-110) mg/dL Hemoglobin A1c 5.2 (4.0-6.0) % Calcium (8.4-10.2) mg/dL Total Bilirubin (0.2-1.3) mg/dL AST (17-59) IU/L ALT (<50) IU/L Alkaline Phosphatase (38-126) U/L Total Creatine Kinase (55-170) U/L CK-MB (CK-2) (<2.37) ng/mL CK-MB (CK-2) Rel Index (1.5-5.0) % Troponin I (0.01-0.034) ng/mL Total Protein (6.3-8.2) g/dL Albumin (3.5-5.0) g/dL Globulin (1.7-4.1) g/dL Albumin/Globulin Ratio (1.0-2.8) Urine Dip Bedside Urine Glucose Negative Bedside Urine Bilirubin - Negative Bedside Urine Ketone - Negative Urine Specific [place] 1.015 Bedside Urine Occult Blood +/- Bedside Urine pH 6 Bedside Urine Protein - Negative Bedside Urine Urobilinogen - Negative Bedside Urine Nitrite - Negative Bedside Urine Leukocytes - Negative Esterase MDM Narrative Medical decision making narrative: This patient is outside of the window for tPA. We will admit the patient for continued risk stratification and further diagnostic testing. I discussed this case with the hospitalist and she agreed to the plan. All of this was discussed with both the patient and his and they both verbalized understanding and agreement. <Katherine Lam, DO - Last Filed: 03/02/21 07:31> Lab Data Labs: Lab Results 02/23/21 02/23/21 02/23/21 Range/Units 11:20 11:20 11:20 WBC 5.8 (4.5-11.0) X10^3/uL RBC 4.88 (4.5-5.9) X10^6/uL Hgb 13.9 (13.5-17.5) g/dL Hct 41.7 (41-53) % MCV 85.5 (80-100) fL MCH 28.4 (26-34) PG MCHC 33.2 (30-36) % RDW 13.7 (11.6-14.8) % Plt Count 164 (150-400) X10^3/uL Neut % (Auto) 61.2 (50-75) % Lymph % (Auto) 24.5 L (25-40) % [place] % (Auto) 10.1 (3-14) % Eos % (Auto) 3.5 (2-4) % Baso % (Auto) 0.7 (0-2) % Neut # (Auto) 3600 (5956-6308) /uL Lymph # (Auto) 1400 (2476-2127) /uL [place] # (Auto) 600 (0-900) /uL Eos # (Auto) 200 (0-450) /uL Baso # (Auto) 0 (0-100) /uL PT 12.6 (10.1-12.7) SECONDS INR 1.1 (0.9-1.3) APTT 52 H (26.4-36.2) SECONDS Sodium 140 (137-145) mmol/L Potassium 4.1 (3.4-5.1) mmol/L Chloride 111 H (98-107) mmol/L Carbon Dioxide 24 (22-32) mmol/L BUN 17 (9-20) mg/dL Creatinine 1.11 (0.66-1.25) mg/dL Estimated GFR > 60.0 (>60) mL/min BUN/Creatinine Ratio 15.3 (6-22) Glucose 108 (80-110) mg/dL Hemoglobin A1c (4.0-6.0) % Calcium 9.5 (8.4-10.2) mg/dL Total Bilirubin 0.9 (0.2-1.3) mg/dL AST 25 (17-59) IU/L ALT 14 (<50) IU/L Alkaline Phosphatase 62 (38-126) U/L Total Creatine Kinase 115 (55-170) U/L CK-MB (CK-2) 0.67 (<2.37) ng/mL CK-MB (CK-2) Rel Index 0.6 L (1.5-5.0) % Troponin I < 0.012 (0.01-0.034) ng/mL Total Protein 6.4 (6.3-8.2) g/dL Albumin 3.8 (3.5-5.0) g/dL Globulin 2.6 (1.7-4.1) g/dL Albumin/Globulin Ratio 1.5 (1.0-2.8) 02/23/21 Range/Units 11:20 WBC (4.5-11.0) X10^3/uL RBC (4.5-5.9) X10^6/uL Hgb (13.5-17.5) g/dL Hct (41-53) % MCV (80-100) fL MCH (26-34) PG MCHC (30-36) % RDW (11.6-14.8) % Plt Count (150-400) X10^3/uL Neut % (Auto) (50-75) % Lymph % (Auto) (25-40) % [place] % (Auto) (3-14) % Eos % (Auto) (2-4) % Baso % (Auto) (0-2) % Neut # (Auto) (4408-1825) /uL Lymph # (Auto) (7252-4308) /uL [place] # (Auto) (0-900) /uL Eos # (Auto) (0-450) /uL Baso # (Auto) (0-100) /uL PT (10.1-12.7) SECONDS INR (0.9-1.3) APTT (26.4-36.2) SECONDS Sodium (137-145) mmol/L Potassium (3.4-5.1) mmol/L Chloride (98-107) mmol/L Carbon Dioxide (22-32) mmol/L BUN (9-20) mg/dL Creatinine (0.66-1.25) mg/dL Estimated GFR (>60) mL/min BUN/Creatinine Ratio (6-22) Glucose (80-110) mg/dL Hemoglobin A1c 5.2 (4.0-6.0) % Calcium (8.4-10.2) mg/dL Total Bilirubin (0.2-1.3) mg/dL AST (17-59) IU/L ALT (<50) IU/L Alkaline Phosphatase (38-126) U/L Total Creatine Kinase (55-170) U/L CK-MB (CK-2) (<2.37) ng/mL CK-MB (CK-2) Rel Index (1.5-5.0) % Troponin I (0.01-0.034) ng/mL Total Protein (6.3-8.2) g/dL Albumin (3.5-5.0) g/dL Globulin (1.7-4.1) g/dL Albumin/Globulin Ratio (1.0-2.8) Urine Dip Bedside Urine Glucose Negative Bedside Urine Bilirubin - Negative Bedside Urine Ketone - Negative Urine Specific [place] 1.015 Bedside Urine Occult Blood +/- Bedside Urine pH 6 Bedside Urine Protein - Negative Bedside Urine Urobilinogen - Negative Bedside Urine Nitrite - Negative Bedside Urine Leukocytes - Negative Esterase Discharge Plan Departure Patient Disposition: Home Clinical Impression: Cerebrovascular accident Qualifiers: CVA mechanism: unspecified Qualified Code(s): I63.9 - Cerebral infarction, unspecified <Katherine Lam DO - Last Filed: 03/02/21 07:31> Cosign ED Attending Coscristianature Attestation: I was immediately available in the department for consultation. Documentation has been reviewed. Case was discussed. ASA given. Patient far outside window for intervention. Admitted for risk factor modification additional work up.
[2021-02-23] MEDS: ASPIRIN 325 MG TABLET PO (14:04)
[2021-02-23 16:57] LABS: COVID19 - ADMIT (NP swab/PCR) Negative (Negative)
--- NOTE | 2021-02-23 18:40 | P.HP_ITS ---
History of Present Illness History of Present Illness Date Patient Seen: 02/23/21 Time Patient Seen: 17:30 Chief complaint: CVA, Neurologist, Dr. Gill told him to come in Narrative: Jacek Mercer is a 76 y.o. male who presented to the ED with a chief complaint of right-sided arm and leg weakness that started at 8:30 p.m. last night. He reports that his symptoms were initially noted when he was getting into the car and had difficulty lifting his leg and grasping the handle of the door. He then had his drive him to [facility] emergency department later that evening and per the patient, a CT scan was done which did not show any significant ischemic changes. He was consulted with neurology and recommended to be admitted to the hospital for further risk stratification. MRI was not able to be done until Friday so the patient elected to leave against medical advice. It does not look like any blood thinners were started on the patient at that time. He has a history of having had a TIA a month ago and had been seeing Dr. Gill, Neurologist, contacted their office and they directed him back to the ED. He denies any significant change in his symptoms since they started yesterday evening. He continues to have difficulty walking with his right leg and states it gives out on him. He has increased weakness in his right arm he states which is improving. Denies any difficulty speaking, chest pain, shortness of breath, palpitations, vision changes, or any other acute concerns or complaints at this time. Denies n/v, dysurea, urinary or stool incontinence or numbing, tingling or weakness of his left upper or lower extremeties. During his January 03 visit for a TIA, at that time his brain MRI only suggested small vessel disease with no acute findings. MRI of the brain done today indicated bilateral subacute infarctions. There were no findings of the major vessels. Patient is afebrile, blood pressure 150/79, heart rate 56, respiratory rate 18, oxygen saturation of 97% on room air, he weighs 74.8 kg with a BMI of 23.7. CBC is largely within normal limits, as well as his chemistries, COVID-19 is negative. Patient History Medical History Cervical radiculopathy Ocular migraine Right knee DJD TIA (transient ischemic attack) Surgical History History of nephrectomy, right Family & Social History Family History Mother Congestive heart failure Father CVA (cerebral vascular accident) Safety & Behavioral: Feels Safe in Current Yes Environment Been Physically Hurt or No Threatened By a Person Tobacco & Substance use: Smoking Status Former smoker alcohol intake frequency holiday/special occasion Substance Use Type does not use Meds Home Medications and Allergies Home Medications Medication Instructions Recorded Confirmed Type tamsulosin 0.4 mg capsule (Flomax) 0.4 mg PO QDAY #0 12/29/16 01/01/21 History carvedilol 12.5 mg tablet 12.5 mg PO .COMPLEX 08/13/18 01/01/21 History aspirin 81 mg tablet,delayed 81 mg PO DAILY 01/01/21 01/01/21 History release (Adult Aspirin Regimen) celecoxib 200 mg capsule (Celebrex) 200 mg PO DAILY #90 cap 01/01/21 01/01/21 Rx cholecalciferol (vitamin D3) 50 50 mcg PO DAILY 01/01/21 01/01/21 History mcg (2,000 unit) capsule vitamin B complex 1 tab PO DAILY 01/01/21 01/01/21 History Allergies Allergy/AdvReac Type Severity Reaction Status Date / Time oxycillin prostaphlyn Allergy Unknown Uncoded 02/23/21 11:01 Review of Systems Review of Systems ROS: Yes All systems reviewed with the patient and are negative except as otherwise documented Exam Vital Signs (past 8 hours): - 02/23/21 11:01 02/23/21 12:32 02/23/21 12:34 Temperature 97.9 F Pulse Rate 66 55 L 54 L Respiratory Rate 14 18 19 Blood Pressure 163/96 H 177/94 H Pulse Oximetry 96 97 98 02/23/21 13:00 02/23/21 13:01 02/23/21 13:19 Temperature Pulse Rate 53 L 53 L 59 L Respiratory Rate 21 16 Blood Pressure 173/86 H 150/106 H Pulse Oximetry 97 97 98 02/23/21 13:30 02/23/21 14:03 02/23/21 14:04 Temperature Pulse Rate 51 L 56 L 60 Respiratory Rate Blood Pressure 151/91 H 173/93 H Pulse Oximetry 96 92 97 02/23/21 14:30 02/23/21 15:33 02/23/21 15:35 Temperature Pulse Rate 58 L 55 L Respiratory Rate 11 L Blood Pressure 151/91 H 194/88 H Pulse Oximetry 98 93 98 02/23/21 16:00 02/23/21 16:01 02/23/21 16:30 Temperature Pulse Rate 57 L 59 L 54 L Respiratory Rate Blood Pressure 142/104 H 142/104 H Pulse Oximetry 96 97 97 02/23/21 17:00 02/23/21 18:05 02/23/21 18:09 Temperature Pulse Rate 52 L 61 61 Respiratory Rate 18 17 Blood Pressure 178/92 H 154/104 H Pulse Oximetry 97 100 95 Oxygen Delivery Method Room Air Narrative Exam Narrative: Gen: Alert, oriented, well-developed 76 y.o. male, sitting up and eating dinner HEENT: normocephalic, atraumatic, conjunctiva clear, sclera non-icteric, oral mucosa pink and moist Neck: supple, full ROM Resp: Lungs CTA, non-labored breathing CV: RRR, no murmur or rubs Abd: soft, non-tender, normoactive BTs Skin: no lesions or rashes, dry and intact Neuro: Facial movements symmetrical except for his tongue which appears to droop to his left, speech is clear, alert and oriented X 4 w/no focal deficits, NIH reported to be 1 in the ED, NIH 2 by me. Extremities: moves all 4 extremities, week right leg, normally is ambulatory, negative Sebastian?s sign Psyche: normal mood and affect. Objective Labs Result Diagrams: 02/23/21 11:20 02/23/21 11:20 Labs: Laboratory Results - last 24 hr 02/23/21 02/23/21 02/23/21 11:20 11:20 11:20 WBC 5.8 RBC 4.88 Hgb 13.9 Hct 41.7 MCV 85.5 MCH 28.4 MCHC 33.2 RDW 13.7 Plt Count 164 Neut % (Auto) 61.2 Lymph % (Auto) 24.5 L Gibson % (Auto) 10.1 Eos % (Auto) 3.5 Baso % (Auto) 0.7 Neut # (Auto) 3600 Lymph # (Auto) 1400 Gibson # (Auto) 600 Eos # (Auto) 200 Baso # (Auto) 0 PT 12.6 INR 1.1 APTT 52 H Sodium 140 Potassium 4.1 Chloride 111 H Carbon Dioxide 24 BUN 17 Creatinine 1.11 Estimated GFR > 60.0 BUN/Creatinine Ratio 15.3 Glucose 108 Calcium 9.5 Total Bilirubin 0.9 AST 25 ALT 14 Alkaline Phosphatase 62 Total Creatine Kinase 115 CK-MB (CK-2) 0.67 CK-MB (CK-2) Rel Index 0.6 L Troponin I < 0.012 Total Protein 6.4 Albumin 3.8 Globulin 2.6 Albumin/Globulin Ratio 1.5 SARS-CoV-2 (PCR) 02/23/21 15:36 WBC RBC Hgb Hct MCV MCH MCHC RDW Plt Count Neut % (Auto) Lymph % (Auto) Gibson % (Auto) Eos % (Auto) Baso % (Auto) Neut # (Auto) Lymph # (Auto) Gibson # (Auto) Eos # (Auto) Baso # (Auto) PT INR APTT Sodium Potassium Chloride Carbon Dioxide BUN Creatinine Estimated GFR BUN/Creatinine Ratio Glucose Calcium Total Bilirubin AST ALT Alkaline Phosphatase Total Creatine Kinase CK-MB (CK-2) CK-MB (CK-2) Rel Index Troponin I Total Protein Albumin Globulin Albumin/Globulin Ratio SARS-CoV-2 (PCR) Negative Assessment & Plan Assessment & Plan narrative: Jacek Mercer is admitted as a inpatient for further evaluation and treatment for a bilateral ischemic stroke. 1. CVA, acute and present on admission * Today's MRI indicated a bilateral subacute ischemic stroke * Cardiac telemetry * NIH score greater than 5 no * NIH scoring and neuro checks q 4 hours * Dual antiplatelet therapy: Yes initiate dual antiplatelet therapy with clopidogrel 75 mg p.o. daily and aspirin 81 mg p.o. daily * MR stroke was done today * Complete Echo with bubble study scheduled for 02/24/2021. * PT/OT/ST evaluation 2. Hypertension, acute with an admission bp of 163/96, present on admission * Allow for permissive hypertension of 220/110 HR 60 to allow for brain perfusion * Allow for permissive hypertension for brain profusion of a systolic of 220 and a diastolic of 105. * IV labetolol if his systolic exceeds 220 or diastolic greater than 105. 3. Probable CAD * Fasting lipid panel, pending for 0500 labs * Atorvastatin 80 mg po at bedtime 4. Risk stratification * Fasting lipid panel pending for the morning * A1c is pending. VTE Prophylaxis: Wells risk score 0 [X] Enoxaparin 40 mg SubQ daily Patient is admitted to the inpatient service due to the severity of disease, risks of further disease progression and this stay is expected to exceed 2 midnights. FEN: IV fluids: saline lock, diet: heart healthy diet, labs: CBC, C/BMP, liver enzymes, Mag, PT/INR Code status: DNR as discussed with the patient who identifies Tenisha Mercer as his surrogate and POA. Anticipated dispo: home w/physical therapy. I have utilized all available immediate resources (patient, family member, internal and external medical records) to obtain, update, or review the patient?s current home medications. COVID-19 COVID-19 status: Negative Result date/Date tested (Pos, Neg/Pending): 02/23/21 Scores NIHSS Level of Conciousness: Alert, keenly responsive Ask month/age: Answers both questions correctly. Open/close eyes, close hand: Performs both tasks correctly Best gaze horizontal: Normal Visual banuelos: No visual loss Facial palsy: Normal symetrical movement Left arm drift: No drift for full 10 sec Right arm drift: No drift for full 10 sec Left leg drift: No drift for full 5 sec Right leg drift: No drift for full 5 sec Limb ataxia: Present in one limb Sensory on face/arms/legs: Mild to moderate sensory loss, can tell touch Best language: No aphasia, normal Dysarthria: Normal Extinction or inattention: No abnormality Total NIH Stroke scale score: 2 Wells' Criteria for PE Clinical signs and symptoms of DVT: No PE is #1 Dx or equally likely: No Heart rate > 100: No Immobilization at least 3 days or surg in previous 4 weeks: No History of PE or DVT: No Hemoptysis: No Malignancy w/Treatment within 6 months or palliative: No Wells' PE Score total: 0 Quality Stroke Contraindication Not Initiating IV-Tpa: Contraindicated (Outside of window) Onset of Symptoms Date: 02/22/21 Symptom Onset Unknown: Yes Contraindication Antithromb by Day Two: Contraindicated Reason for No Antithrombin at DC: Contraindicated Rehab Services Assessed: Rehabilitation therapy VTE Deep Vein Thrombosis/Pulmonary Embolism Present on Admission: No MIPS - Admit I confirm the patient?s Advance Care Plan is present, Code status is documented, Surrogate decision maker is in patient?s record [If Yes, STOP here]: Yes
[2021-02-23 20:14] LABS: Hemoglobin A1C% w Est Avg Glu 5.2 % (4.0-6.0)
[2021-02-23 20:42] LABS: BUN Creatinine Ratio 15.7 (6-22); Blood Urea Nitrogen 18 mg/dL (9-20); Calcium 9.1 mg/dL (8.4-10.2); Carbon Dioxide 28 mmol/L (22-32); Chloride 110 mmol/L (98-107); Estimated Glomerular Filt Rate > 60.0 mL/min (>60); Glucose 98 mg/dL (80-110); HEMOLYSIS < 15 (0-50); Potassium 4.6 mmol/L (3.4-5.1); Sodium 141 mmol/L (137-145)
[2021-02-23] MEDS: carvediloL 12.5 MG TABLET PO (20:53)
[2021-02-24] VITALS (26 sets, daily range): BP systolic 130–175; BP diastolic 69–101; PULSE 46–67; RESP 17; O2SAT 95–99
[2021-02-24 05:09] LABS: Add Manual Diff / Slide Review NO; Basophils Absolute Auto 100 /uL (0-100); Eosinophils Absolute Auto 300 /uL (0-450); Eosinophils Percent Auto 5.9 % (2-4); Hemoglobin 14.6 g/dL (13.5-17.5); Lymphocytes Absolute Auto 2000 /uL (1100-4500); Lymphocytes Percent Auto 36.4 % (25-40); Mean Corpuscular HGB Conc 33.9 % (30-36); Mean Corpuscular Volume 85.5 fL (80-100); Monocytes Absolute Auto 600 /uL (0-900); Monocytes Percent Auto 11.4 % (3-14); Neutrophils Absolute Auto 2500 /uL (1500-7000); Neutrophils Percent Auto 45.3 % (50-75); Platelet Count 159 X10^3/uL (150-400); Red Blood Cell Count 5.03 X10^6/uL (4.5-5.9); Red Cell Distribution Width 13.7 % (11.6-14.8); White Blood Cell Count 5.5 X10^3/uL (4.5-11.0)
[2021-02-24 05:18] LABS: Cholesterol 150 mg/dL (140-199); HDL Cholesterol 48 mg/dL (40-60); LDL Cholesterol Calculated 85 mg/dL (<100); Triglycerides 86 mg/dL (35-150)
--- NOTE | 2021-02-24 09:13 | PT.IIE ---
Current Diagnoses Cerebral infarction, unspecified (02/23/21) Medical History (Last Reviewed 02/23/21 @ 19:37 by BERONICA Campos) Cervical radiculopathy Ocular migraine Right knee DJD TIA (transient ischemic attack) Physical Therapy Inpatient Evaluation/Re-Eval M1 PT/OT-IP Prior Functional Status Start: 02/24/21 09:38 Freq: NEEDED Status: Active Protocol: Document 02/24/21 08:18 DCW (Rec: 02/24/21 10:00 [facility] [id number]) Medical Review Prior Functional Status Medical History Reviewed Yes Diet/Fluid Consistency Regular Communication Independent Mobility and Gait Independent, daily one mile walks with Activities of Daily Living and IADL's Independent Social History Household Members spouse Living Arrangements House Number of Floors (Floors) One Floor Number of Stairs To Enter/Railing? 2 [place], no railing Home Environment Tub/Shower,Narrow Doors Additional Social History Comment Has FWW that he can brrow from friends if necessary M2 PT-IP Current Condition Start: 02/24/21 09:38 Freq: NEEDED Status: Active Protocol: Document 02/24/21 08:18 DCW (Rec: 02/24/21 10:00 [facility] [id number]) Physical Therapy Current Condition Current Condition Evaluation Date 02/24/21 Treatment Diagnosis CVA, R weakness Onset Date 02/22/21 M3 PT-IP Subjective Start: 02/24/21 09:38 Freq: NEEDED Status: Active Protocol: Document 02/24/21 08:18 DCW (Rec: 02/24/21 10:00 [facility] [id number]) Subjective Physical Therapy Visit Type Type Initial Evaluation Visit Start Time 08:18 Visit Stop Time 09:13 Total Visit Minutes 55 Notes Pt is a 76 year old male who originally presented to [facility] was right- sided weakness 02/22/21. CT at the time showed no ischemic changes, they wanted to admit him until an MRI could be done on Friday. Pt did not want to wait that long, so discharged AMA. Following day 02/23/21 pt was convinced by Neurologist to return to hospital, so his drove him to [facility]. MRI showed bilateral subacute ischemic CVA, pt was admitted at that time. Pt notes no pain, has some complaints of right LE weakness. Thinks his right UE may be weak, but not as drastically as his leg. Reports his leg won't hold him up, and it feels like my foot just sticks to the floor. Physical Therapy Visit Comments Patient Comments This may sound strange, but I don't want you to sugar coat anything. I want to know how bad this is. Patient Goals Pt wants to return to his usual one mile daily walks. Therapy Pain Assessment Pain When Pain Assessed During Mobility Pain Present Pain Present Denied Pain M4 PT-IP Mobility and Gait Start: 02/24/21 09:38 Freq: NEEDED Status: Active Protocol: Document 02/24/21 08:18 DCW (Rec: 02/24/21 10:00 [facility] [id number]) PT-Transfer Assessment Sit to and From Stand Sit to and from Stand Contact Guard Assistance Equipment Transfer Assistive Device None,Gait Belt,Front Wheeled Walker Orthotic/Prosthetic Devices or Brace: No Transfers Transfer Destination Chair Transfer Technique Stand Step Pivot Transfer Ability Level of Assist Contact Guard Assistance Comments Mobility Comments Sit<stand CGA, verbal cues to not use FWW to pull himself up . Mild R knee buckling that pt was able to self-correct. Gait Assessment Gait Gait Assistance Required: Contact Guard Assist Distance (Feet) 40 Able to Maintain Weight Bearing Status Yes During Gait Assistive Devices Assistive Device Gait Belt,Front Wheeled Walker Gait Deviations General Gait Pattern Ataxic,Decreased Stride Length ,Decreased Feet Clearance, Flexed Trunk,Step-to Gait Factors Limiting Gait Function Factors Limiting Gait Function Decreased Activity Tolerance, Decreased Sensation,Poor Balance Comments Gait Comments Pt ambulated in room 8' CGA without an Assistive device. Decreased balance, difficulty advancing right leg. Pt ambulated 40' using FWW into ED CGA, had difficulty for first 10' getting used to FWW, then walked safely for 20 ', slight difficulty with R swing phase, decreased foot clearance on R. Last 10' back to room showed decreased balance, worsening foot drag, less stability. PT-Balance Assessment Sitting Balance and Reactions Static Sitting Balance Ability Normal Dynamic Sitting Balance Ability Good Standing Balance and Reactions Static Standing Balance Ability Good Dynamic Standing Balance Ability Fair Comments Other Balance Tests/Deviations/Treatment Wide YUSRA eyes closed: 15 : seconds M5 PT-IP Objective Assessments Start: 02/24/21 09:38 Freq: NEEDED Status: Active Protocol: Document 02/24/21 08:18 DCW (Rec: 02/24/21 10:00 [facility] [id number]) Orientation Orientation/Cognition Level of Alertness Alert Orientation Name,Birthday,Date,Place, Situation Language Function Ability No Deficits Noted Safety Awareness Understands Safety Issues Memory Description No Deficits Noted Gross Range of Motion Upper Extremity ROM Assessment Within Functional Limits Lower Extremity ROM Assessment Within Functional Limits Strength Lower Extremity Strength Assessment Right Impaired Hip 4/5 Knee 4-/5 Ankle 4-/5 Sensation Assessment Sensation Gross Sensation WNL Light Touch Intact M7 PT-IP Assessment and Plan Start: 02/24/21 09:38 Freq: NEEDED Status: Active Protocol: Document 02/24/21 08:18 DCW (Rec: 02/24/21 10:00 [facility] [id number]) PT Summary Assessment and Plan Potential Rehabilitation Potential Good Status of Condition at Evaluation Stable Summary Impairments Strength,Balance,Coordination, Transfers,Gait,Activity Tolerance Assessment Summary Pt presents with right-sided weakness, imbalance, and gait difficulty following bilateral subacute ischimic CVA. Pt has fairly good (4-/5 or better) strength in R LE, however exhibits poor activity tolerance, and quickly loses strength and stability when up moving around. Pt showed improved gait and safety short -term when using FWW, although this too declined as he fatigued. Overall, pt doing fairly well at this time s/p CVA, although pt is emotionally very worried about how lingering symptoms will affect his daily life. Pt should benefit from continued in-patient therapy for increasing activity tolerance, stair and gait training, caregiver training. Pt will likely be a good candidate for skilled outpatient therapy upon discharge. Goals Transfer Goal Independent Gait Goal Standby Assistance,Front Wheel Walker Gait Distance 100' Other Goals Ascend/descend 2 stairs SBA Days to Meet Goals 3 Frequency of Treatment Frequency Of Treatment Once a Day Treatment Plan Physical Therapy Treatment Plan Transfer Training,Gait Training,Therapeutic Exercise, Balance Retraining,Discharge Planning,Neuromuscular Re-ed Recommendations To Nursing Amount of Assist Needed 1 Person Assist Discharge Recommendations PT Discharge Recommendations Home,Outpatient PT Equipment Needed for Home Before FWW, per pt, will be able to Discharge borrow from friend Transportation Needs at Discharge Private Vehicle
[2021-02-24] MEDS: ASPIRIN EC 81 MG TABLET PO (09:26)
[2021-02-24] MEDS: TAMSULOSIN 0.4 MG CAPSULE PO (09:27)
[2021-02-24] MEDS: ENOXAPARIN 40 MG/0.4 ML SYRINGE SUBCUT (09:27)
[2021-02-24] MEDS: CLOPIDOGREL 75 MG TABLET PO (09:27)
--- NOTE | 2021-02-24 10:00 | PT.IIE ---
Current Diagnoses Cerebral infarction, unspecified (02/23/21) Medical History (Last Reviewed 02/23/21 @ 19:37 by BERONICA Campos) Cervical radiculopathy Ocular migraine Right knee DJD TIA (transient ischemic attack) Physical Therapy Inpatient Evaluation/Re-Eval M1 PT/OT-IP Prior Functional Status Start: 02/24/21 09:38 Freq: NEEDED Status: Active Protocol: Document 02/24/21 08:18 DCW (Rec: 02/24/21 10:00 [facility] [id number]) Medical Review Prior Functional Status Medical History Reviewed Yes Diet/Fluid Consistency Regular Communication Independent Mobility and Gait Independent, daily one mile walks with Activities of Daily Living and IADL's Independent Social History Household Members spouse Living Arrangements House Number of Floors (Floors) One Floor Number of Stairs To Enter/Railing? 2 [place], no railing Home Environment Tub/Shower,Narrow Doors Additional Social History Comment Has FWW that he can brrow from friends if necessary M2 PT-IP Current Condition Start: 02/24/21 09:38 Freq: NEEDED Status: Active Protocol: Document 02/24/21 08:18 DCW (Rec: 02/24/21 10:00 [facility] [id number]) Physical Therapy Current Condition Current Condition Evaluation Date 02/24/21 Treatment Diagnosis CVA, R weakness Onset Date 02/22/21 M3 PT-IP Subjective Start: 02/24/21 09:38 Freq: NEEDED Status: Active Protocol: Document 02/24/21 08:18 DCW (Rec: 02/24/21 10:00 [facility] [id number]) Subjective Physical Therapy Visit Type Type Initial Evaluation Visit Start Time 08:18 Visit Stop Time 09:13 Total Visit Minutes 55 Notes Pt is a 76 year old male who originally presented to [facility] was right- sided weakness 02/22/21. CT at the time showed no ischemic changes, they wanted to admit him until an MRI could be done on Friday. Pt did not want to wait that long, so discharged AMA. Following day 02/23/21 pt was convinced by Neurologist to return to hospital, so his drove him to [facility]. MRI showed bilateral subacute ischemic CVA, pt was admitted at that time. Pt notes no pain, has some complaints of right LE weakness. Thinks his right UE may be weak, but not as drastically as his leg. Reports his leg won't hold him up, and it feels like my foot just sticks to the floor. Physical Therapy Visit Comments Patient Comments This may sound strange, but I don't want you to sugar coat anything. I want to know how bad this is. Patient Goals Pt wants to return to his usual one mile daily walks. Therapy Pain Assessment Pain When Pain Assessed During Mobility Pain Present Pain Present Denied Pain M4 PT-IP Mobility and Gait Start: 02/24/21 09:38 Freq: NEEDED Status: Active Protocol: Document 02/24/21 08:18 DCW (Rec: 02/24/21 10:00 DCW [id number]) PT-Transfer Assessment Sit to and From Stand Sit to and from Stand Contact Guard Assistance Equipment Transfer Assistive Device None,Gait Belt,Front Wheeled Walker Orthotic/Prosthetic Devices or Brace: No Transfers Transfer Destination Chair Transfer Technique Stand Step Pivot Transfer Ability Level of Assist Contact Guard Assistance Comments Mobility Comments Sit<stand CGA, verbal cues to not use FWW to pull himself up . Mild R knee buckling that pt was able to self-correct. Gait Assessment Gait Gait Assistance Required: Contact Guard Assist Distance (Feet) 40 Able to Maintain Weight Bearing Status Yes During Gait Assistive Devices Assistive Device Gait Belt,Front Wheeled Walker Gait Deviations General Gait Pattern Ataxic,Decreased Stride Length ,Decreased Feet Clearance, Flexed Trunk,Step-to Gait Factors Limiting Gait Function Factors Limiting Gait Function Decreased Activity Tolerance, Decreased Sensation,Poor Balance Comments Gait Comments Pt ambulated in room 8' CGA without an Assistive device. Decreased balance, difficulty advancing right leg. Pt ambulated 40' using FWW into ED CGA, had difficulty for first 10' getting used to FWW, then walked safely for 20 ', slight difficulty with R swing phase, decreased foot clearance on R. Last 10' back to room showed decreased balance, worsening foot drag, less stability. PT-Balance Assessment Sitting Balance and Reactions Static Sitting Balance Ability Normal Dynamic Sitting Balance Ability Good Standing Balance and Reactions Static Standing Balance Ability Good Dynamic Standing Balance Ability Fair Comments Other Balance Tests/Deviations/Treatment Wide YUSRA eyes closed: 15 : seconds M5 PT-IP Objective Assessments Start: 02/24/21 09:38 Freq: NEEDED Status: Active Protocol: Document 02/24/21 08:18 DCW (Rec: 02/24/21 10:00 [facility] [id number]) Orientation Orientation/Cognition Level of Alertness Alert Orientation Name,Birthday,Date,Place, Situation Language Function Ability No Deficits Noted Safety Awareness Understands Safety Issues Memory Description No Deficits Noted Gross Range of Motion Upper Extremity ROM Assessment Within Functional Limits Lower Extremity ROM Assessment Within Functional Limits Strength Lower Extremity Strength Assessment Right Impaired Hip 4/5 Knee 4-/5 Ankle 4-/5 Sensation Assessment Sensation Gross Sensation WNL Light Touch Intact M7 PT-IP Assessment and Plan Start: 02/24/21 09:38 Freq: NEEDED Status: Active Protocol: Document 02/24/21 08:18 DCW (Rec: 02/24/21 10:00 DCW [id number]) PT Summary Assessment and Plan Potential Rehabilitation Potential Good Status of Condition at Evaluation Stable Summary Impairments Strength,Balance,Coordination, Transfers,Gait,Activity Tolerance Assessment Summary Pt presents with right-sided weakness, imbalance, and gait difficulty following bilateral subacute ischemic CVA. Pt has fairly good (4-/5 or better) strength in R LE, however exhibits poor activity tolerance, and quickly loses strength and stability when up moving around. Pt showed improved gait and safety short -term when using FWW, although this too declined as he fatigued. Overall, pt doing fairly well at this time s/p CVA, although pt is emotionally very worried about how lingering symptoms will affect his daily life. Pt should benefit from continued in-patient therapy for increasing activity tolerance, stair and gait training, caregiver training. Pt will likely be a good candidate for skilled outpatient therapy upon discharge. Goals Transfer Goal Independent Gait Goal Standby Assistance,Front Wheel Walker Gait Distance 100' Other Goals Ascend/descend 2 stairs SBA Days to Meet Goals 3 Frequency of Treatment Frequency Of Treatment Once a Day Treatment Plan Physical Therapy Treatment Plan Transfer Training,Gait Training,Therapeutic Exercise, Balance Retraining,Discharge Planning,Neuromuscular Re-ed Recommendations To Nursing Amount of Assist Needed 1 Person Assist Discharge Recommendations PT Discharge Recommendations Home,Outpatient PT Equipment Needed for Home Before FWW, per pt, will be able to Discharge borrow from friend Transportation Needs at Discharge Private Vehicle
--- NOTE | 2021-02-24 11:47 | ST.IPSCREEN ---
order received for speech/swallow evaluation secondary to CVA. Pt was in his room with his present. Introduced self and purpose. Pt and his denied any difficulty with speech/language and swallowing. Observed pt in conversation for ~10 minutes. No overt s/x aphasia, dysarthria during conversation. pt safely swallowed water with a straw without overt s/sx dysphagia. Discussed with pt and to contact PCP/return to ED if they notice any changes in speech/swallow. Both indicated they understood and agreed with plan.
--- NOTE | 2021-02-24 14:23 | OT.IP.EVAL ---
Current Diagnoses Cerebral infarction, unspecified (02/23/21) Past Medical History (Last Reviewed 02/23/21 @ 19:37 by BERONICA Campos) Cervical radiculopathy History of nephrectomy, right Ocular migraine Right knee DJD TIA (transient ischemic attack) Surgical History (Last Reviewed 02/23/21 @ 19:37 by BERONICA Campos) History of nephrectomy, right Occupational Therapy Inpatient Evaluation/Re-Eval M1 PT/OT-IP Prior Functional Status Start: 02/24/21 09:38 Freq: NEEDED Status: Active Protocol: Document 02/24/21 16:25 CGR (Rec: 02/24/21 16:57 CGR [id number]) Medical Review Prior Functional Status Medical History Reviewed Yes Diet/Fluid Consistency Regular Communication Pt is an effecitve verbal communicator. Mobility and Gait Independent, daily one mile walks with Activities of Daily Living and IADL's Independent Social History Household Members spouse Living Arrangements House Number of Floors (Floors) One Floor Number of Stairs To Enter/Railing? 2 [place], no railing Home Environment High Toilet,Walk in Shower,Tub /Shower,Narrow Doors Home Equipment Grab Bars In Shower Employment Status Retired Additional Social History Comment Has FWW that he can borrow from friends if necessary M1 PT/OT-IP Prior Functional Status Start: 02/24/21 16:23 Freq: NEEDED Status: Active Protocol: Document 02/24/21 16:25 CGR (Rec: 02/24/21 16:57 CGR [id number]) Medical Review Prior Functional Status Medical History Reviewed Yes Diet/Fluid Consistency Regular Communication Pt is an effecitve verbal communicator. Mobility and Gait Independent, daily one mile walks with Activities of Daily Living and IADL's Independent Social History Household Members spouse Living Arrangements House Number of Floors (Floors) One Floor Number of Stairs To Enter/Railing? 2 [place], no railing Home Environment High Toilet,Walk in Shower,Tub /Shower,Narrow Doors Home Equipment Grab Bars In Shower Employment Status Retired Additional Social History Comment Has FWW that he can borrow from friends if necessary M2 OT-IP Current Condition Start: 02/24/21 16:23 Freq: Status: Active Protocol: Document 02/24/21 16:25 CGR (Rec: 02/24/21 16:57 CGR [id number]) Occupational Therapy Current Condition Current Condition Evaluation Date 02/24/21 Treatment Diagnosis R sided weakness, B subacute lacunar infarcts Diagnosis Onset Date 02/23/21 M3 OT- IP Subjective and Pain Start: 02/24/21 16:23 Freq: Status: Active Protocol: Document 02/24/21 16:25 CGR (Rec: 02/24/21 16:57 CGR [id number]) OT- Subjective Occupational Therapy Visit Type Type Initial Evaluation Visit Start Time 13:45 Visit Stop Time 14:23 Total Visit Minutes 38 OT Pain Assessment Pain When Pain Assessed At Rest Pain Present Pain Present Denied Pain M4 OT- IP ADL's Start: 02/24/21 16:23 Freq: Status: Active Protocol: Document 02/24/21 16:25 CGR (Rec: 02/24/21 16:57 CGR [id number]) OT [id number] Comments OT Self-Feeding Comments not meal time OT ADL-Grooming Comments OT Grooming Comments not performed, evalution performed in ER OT ADL-Oral Care Comments Oral Care Comments not performed, evalution performed in ER OT ADL-Dressing General Eval Lower Body Dressing Ability Independent OT ADL-Toileting Comments OT Toileting Comments not performed, evalution performed in ER OT ADL-Bathing Comments OT Bathing Comments not performed, evalution performed in ER M5 OT- IP IADL's Start: 02/24/21 16:23 Freq: Status: Active Protocol: Document 02/24/21 16:25 CGR (Rec: 02/24/21 16:57 CGR [id number]) OT-Instrumental Activities of Daily Living Deficits IADL Deficits Identified Deficits Home Safety Awareness Awareness of Need for Assistance at Home Good Awareness Ability to Problem Solve Emergency Able to Problem Solve Situations Medication Management Medication Management No Deficits Identified Money Management Money Management No Deficits Identified Meal Preparation Meal Preparation Caregiver Provides Assist Pyrotechnic Mixer Pyrotechnic Mixer Caregiver Provides Assist Driving Driving Concerns Identified Regarding Safety Driving Comments Pt was an active lyft driver prior to admit. M6 OT- IP Functional Cognition Start: 02/24/21 16:23 Freq: Status: Active Protocol: Document 02/24/21 16:25 CGR (Rec: 02/24/21 16:57 CGR [id number]) Cognitive Factors Limiting Selfcare Function Cognitive Ability Level of Alertness Alert Patient Orientation Name,Age,Birthday,Month,Date, Year,Day of Week,Place, Situation Attention Span Ability Capable of Focused Attention, Capable of Sustained Attention Ability to Follow Commands Able to Follow Multi-Step Commands OT- Vision and Hearing OT- Hearing Assessment OT- Hearing Assessment WFL OT- Vision Assessment Visual Acuity Glasses All The Time Visual Attentiveness WFL Occular Pursuits WFL Visual Convergence WFL Visual Elliott WFL M7 OT- IP Mobility and Balance Start: 02/24/21 16:23 Freq: Status: Active Protocol: Document 02/24/21 16:25 CGR (Rec: 02/24/21 16:57 CGR [id number]) OT- Bed Mobility Assessment Rolling Type of Rolling Roll to Right Level of Assistance Independent Supine to Sit Supine to Sit Assist Independent Scooting Scooting to Edge of Bed Independent OT-Transfer Assessment Sit to and From Stand Sit to and from Stand Contact Guard Assistance Transfers Transfer Ability Contact Guard Assistance, Minimal Assistance Technique Transfer Destination Bed Transfer Technique Stand Step Pivot Devices Transfer Assistive Devices Gait Belt Comments Mobility Comments Pt performed sit to stand multiple times with poor balance and ataxia to BLE. Pt demonstrates decreased strength to the RLE. OT- Balance Assessment Sitting Balance and Reactions Static Sitting Balance Ability Normal Dynamic Sitting Balance Ability Good M8 OT- IP Objective Assessments Start: 02/24/21 16:23 Freq: Status: Active Protocol: Document 02/24/21 16:25 CGR (Rec: 02/24/21 16:57 CGR [id number]) OT Gross Range of Motion Upper Extremity Range of Motion Assessment Within Functional Limits OT Strength Upper Extremity Strength Assessment Within Functional Limits Comments Strength Comments 4+/5 OT- Coordination Assessment Upper Extremity Finger to Nose Test Within Functional Limits Finger Tapping Test Within Functional Limits OT-Muscle Tone Assessment Muscle Tone WNL Yes OT Sensation Assessment Edema Edema Present Edema Comments LUE from previous M9 OT- IP Assessment and Plan Start: 02/24/21 16:23 Freq: Status: Active Protocol: Document 02/24/21 16:25 CGR (Rec: 02/24/21 16:57 CGR [id number]) OT Summary Assessment and Plan Potential Rehabilitation Potential Excellent Analytic Complexity at Evaluation Moderate Summary OT Impairments Strength,Balance,Functional Mobility,Toileting,Bathing, Toilet Transfers,Shower Transfers,Activity Tolerance Progress Towards Goals Progressing Toward Goals,Slow Progress due to Activity Tolerance Assessment Summary Pt presents as a moderate complexity evaluation s/p admit for stroke like symptoms . Pt is having difficulty with mobility. says pt is likely to discharge today. Pt would benefit from home health OT and P.T. Pt will need a 2ww and a shower chair for discharge home. Goals Self-Feeding Goal Independent Grooming Goal Independent Dressing Goal Independent Toileting Goal Independent Bathing Goal Independent Toilet Transfer Goal Independent Shower Transfer Goal Independent Days to Meet Goals 5 Frequency of Treatment Frequency Of Treatment Once a Day Treatment Plan OT Treatment Plan ADL Training,Functional Mobility,Patient/Family Education,Discharge Planning Other Treatment Recommendations and Next functional mobility to Treatment Focus bathroom etc. Discharge Recommendations OT Discharge Recommendations Home with 03/02 Assist Available Transportation Needs at Discharge Private Vehicle
--- NOTE | 2021-02-24 15:06 | CM.DANOTE ---
Patient is a 76 year old male who was admitted on 02/23/21 for CVA. Pt has [employer] MCR for insurance and his PCP is Jin Maxwell. EMR was reviewed. Per MD, pt was at [facility] and no MRI available until Friday and pt came to [facility] ED and was admitted but remained in the ED and was seen by PT/OT/ST and recommendation of home with HH and spouse assist. writing discharge for pt from ED to home and signed F2F for HH PT/OT. AURELIO called [facility] based on Vendor Calendar and pt's location in [place] ([facility] currently a week and a half out from starting new admits) and they confirm that they will run patient's [employer] insurance and confirm they are contracted and no out of pocket expense and will call pt either way and if not contracted they help refer to a HH agency that is contracted. AURELIO faxed clinicals, F2F, orders to [facility] to review and updated ED RN who will inform pt and spouse and place information in d/c packet. Plan: Patient to d/c home via spouse POV today from the ED and new [facility] referral to follow. INGRID Wade
--- NOTE | 2021-02-24 15:07 | PC.NURSE ---
1400 OT AJQUELIN Flannery at bedside assessing patient.
--- NOTE | 2021-02-24 15:07 | PC.NURSE ---
1415 Dr. Barrett at bedside. Prepping patient for Home health and discharge.
--- NOTE | 2021-02-24 18:28 | P.DS_ITS ---
History of Present Illness History of Present Illness Chief complaint: CVA, Neurologist, Dr. Arriaga told him to come in Narrative: Jacek Mercer is a 76 y.o. male who presented to the ED with a chief complaint of right-sided arm and leg weakness that started at 8:30 p.m. last night. He reports that his symptoms were initially noted when he was getting into the car and had difficulty lifting his leg and grasping the handle of the door. He then had his drive him to [facility] emergency department later that evening and per the patient, a CT scan was done which did not show any significant ischemic changes. He was consulted with neurology and recommended to be admitted to the hospital for further risk stratification. MRI was not able to be done until Friday so the patient elected to leave against medical advice. It does not look like any blood thinners were started on the patient at that time. He has a history of having had a TIA a month ago and had been seeing Dr. Arriaga, Neurologist, contacted their office and they directed him back to the ED. He denies any significant change in his symptoms since they started yesterday evening. He continues to have difficulty walking with his right leg and states it gives out on him. He has increased weakness in his right arm he states which is improving. Denies any difficulty speaking, chest pain, shortness of breath, palpitations, vision changes, or any other acute concerns or complaints at this time. Denies n/v, dysurea, urinary or stool incontinence or numbing, tingling or weakness of his left upper or lower extremeties. During his January 03 visit for a TIA, at that time his brain MRI only suggested small vessel disease with no acute findings. MRI of the brain done today indicated bilateral subacute infarctions. There were no findings of the major vessels. Patient is afebrile, blood pressure 150/79, heart rate 56, respiratory rate 18, oxygen saturation of 97% on room air, he weighs 74.8 kg with a BMI of 23.7. CBC is largely within normal limits, as well as his chemistries, COVID-19 is negative. Discharge Providers Provider Date of admission: 02/23/21 15:00 Discharge Date: 02/24/21 Primary care physician: Sinan Maxwell MD Consults: 02/23/21 17:18 Consult to Discharge Planning Routine Comment: Consult to Occupational Therapy Evaluate & Treat Comment: Physician Instructions: Evaluate and treat Consult to Physical Therapy Evaluate & Treat Comment: Physician Instructions: Evaluate and Treat Consult to Speech Therapy Evaluate & Treat Comment: Physician Instructions: Evaluate and treat 02/24/21 15:04 Consult to Home Health Routine Comment: CVA vs TIA, left sided weakness Reason For Exam: Set up RN/PT for d/c home today Discharge provider: Swati Barrett MD Summary Hospital Course Discharge Diagnosis: 1. Acute CVA, MRI reveals bilateral subacute infarctions, abnormal diffusion-weighted imaging was seen in the deep right matter. Involving the left basal ganglia and left thalamus there was also developing T2 weighted imaging seen in those regions 2. Hypertension 3.Solitary kidney 4. History of ocular migraine Hospital Course: Patient was admitted to the hospital to evaluate right lower extremity weakness. The patient was evaluated and [facility] where CT scan was obtained which showed no ischemic changes. The patient was advised to remain for MRI scanning. Unfortunately MRI would not be available until Friday of this week. The patient presented to [facility] for further evaluation. Patient does report having a TIA 1 month ago. Because of his prior TIA the patient was brought into the hospital for evaluation. Brain MRI revealed the following findingsBilateral subacute infarctions are seen. Brain parenchymal volume loss is seen.Areas abnormal T2 weighted hyperintensity can be seen. While these are statistically most likely related to chronic small vessel ischemic change, the appearance and configuration are also be compatible with multiple sclerosis. Please correlate with underlying patient history.BRAIN MR ANGIOGRAM: No significant intracranial arterial abnormality is seen. Cardiac echo revealed the following findings Asc Ao measuring 4.3cm in parasternal window.Asc Ao measures 4.6cm in apical 3 chamber view. August 2019 it was 4.7 cm and in July 2018, 4.6 cm in diameter.The left ventricle is normal in size and wall thickness. The ejection fraction is estimated to be 55-60%.The right ventricle is normal in size and function. There is mild to moderate mitral regurgitation. Compared to the prior echo study, there has been an increase in the severity of mitral regurgitation. The aortic valve is bicuspid. There is no aortic valve stenosis. No aortic regurgitation is present. There is mild tricuspid regurgitation. The right ventricular systolic pressure is estimated to be at least 25 mmHg based on an estimated right atrial pressure of 3 mm Hg. The patient was evaluated by physical therapy and occupational therapy during his stay. He was found to be somewhat debilitated with respect to his right lower extremity. He was somewhat weak on the right lower extremity. They recommended a 4 prong walker for him. OT recommended a shower chair as well. The patient elected for home health physical therapy to continue strengthening. Because of his recent TIA, abnormal MRI the patient will follow-up with his neurologist Dr. arriaga for further evaluation. He also will follow up with primary care provider Dr. Quiana Porter regarding his blood pressure which is elevated. Amlodipine 5 mg was added to his regimen. Patient was deemed appropriate for discharge and arrangements were made to discharge him home. Status at Discharge Cognitive/behavioral status at discharge: oriented Functional status at discharge: uses cane/walker Overall status at discharge: patient is not back to baseline Exam Vital Signs (past 8 hours): - 02/24/21 13:30 02/24/21 13:31 02/24/21 13:39 Pulse Rate 64 65 60 Respiratory Rate Blood Pressure 149/86 H Pulse Oximetry 95 97 97 02/24/21 13:54 02/24/21 16:23 Pulse Rate 67 Respiratory Rate 17 Blood Pressure 139/90 142/76 H Pulse Oximetry 99 Oxygen Delivery Method Room Air Narrative Exam Narrative: Pleasant gentleman in no obvious distress Resp Other: Lungs clear to auscultation Cardio Other: Cardiac exam: Regular rate and rhythm normal S1-S2 GI Other: Abdomen soft nontender nondistended Neuro Other: Neuro exam significant for weakness in the right lower extremity, gait abnormality, patient is somewhat hesitant and unsteady with ambulation. Objective Labs Result Diagrams: 02/24/21 05:00 02/23/21 20:25 Labs: Laboratory Results - last 24 hr 02/23/21 02/23/21 02/24/21 11:20 20:25 05:00 WBC 5.5 RBC 5.03 Hgb 14.6 Hct 43.0 MCV 85.5 MCH 29.0 MCHC 33.9 RDW 13.7 Plt Count 159 Neut % (Auto) 45.3 L Lymph % (Auto) 36.4 Wolfe % (Auto) 11.4 Eos % (Auto) 5.9 H Baso % (Auto) 1.0 Neut # (Auto) 2500 Lymph # (Auto) 2000 Wolfe # (Auto) 600 Eos # (Auto) 300 Baso # (Auto) 100 Sodium 141 Potassium 4.6 Chloride 110 H Carbon Dioxide 28 BUN 18 Creatinine 1.15 Estimated GFR > 60.0 BUN/Creatinine Ratio 15.7 Glucose 98 Hemoglobin A1c 5.2 Calcium 9.1 Magnesium Triglycerides Cholesterol LDL Cholesterol, Calc HDL Cholesterol 02/24/21 05:00 WBC RBC Hgb Hct MCV MCH MCHC RDW Plt Count Neut % (Auto) Lymph % (Auto) Wolfe % (Auto) Eos % (Auto) Baso % (Auto) Neut # (Auto) Lymph # (Auto) Wolfe # (Auto) Eos # (Auto) Baso # (Auto) Sodium Potassium Chloride Carbon Dioxide BUN Creatinine Estimated GFR BUN/Creatinine Ratio Glucose Hemoglobin A1c Calcium Magnesium 2.0 Triglycerides 86 Cholesterol 150 LDL Cholesterol, Calc 85 HDL Cholesterol 48 PFSH Medical History Cervical radiculopathy Ocular migraine Right knee DJD TIA (transient ischemic attack) Surgical History History of nephrectomy, right Family History Mother Congestive heart failure Father CVA (cerebral vascular accident) Social History household members: spouse Smoking Status: Former smoker Discharge Assessment & Plan Assessment and Plan Assessment: 1. Acute CVA 2. Hypertension 3. Solitary kidney Plan of Treatment: Patient will be discharged on aspirin 81 mg daily, Plavix 75 mg daily for 21 days. In addition high-dose statin, Lipitor 80 mg daily was added to his regimen. The patient will also be started on amlodipine 5 mg per day given his significant hypertension. He will continue to take his Coreg at his prior previous dose. Other medications will be continued. Discharge Plan Discharge Plan Patient Disposition: Home Discharge orders & Medications Prescriptions: New atorvastatin [Lipitor] 20 mg Tablet 80 mg PO BEDTIME Qty: 30 RF: 0 carvedilol [Coreg] 12.5 mg Tablet 12.5 mg PO BEDTIME Qty: 30 RF: 0 clopidogrel 75 mg Tablet 75 mg PO DAILY Qty: 21 RF: 0 amlodipine 5 mg tablet 5 mg PO DAILY Qty: 30 RF: 0 Continued tamsulosin [Flomax] 0.4 MG capsule,extended release 24hr 0.4 mg PO QDAY Qty: 0 RF: 0 carvedilol 12.5 mg tablet 12.5 mg PO .COMPLEX RF: 0 cholecalciferol (vitamin D3) 50 mcg (2,000 unit) capsule 50 mcg PO DAILY RF: 0 vitamin B complex Tablet 1 tab PO DAILY RF: 0 aspirin [Adult Aspirin Regimen] 81 mg tablet,delayed release (DR/EC) 81 mg PO DAILY RF: 0 Discontinued celecoxib [Celebrex] 200 mg capsule 200 mg PO DAILY Qty: 90 RF: 2 Follow up/Referrals: Jin Maxwell MD [Primary Care Provider] - Jalyn Damon MD [Physician] - Bia Porter PA-C [Non-Staff] - (s/p stroke ) Diet/Activity/Treatments Diet: Low-sodium Activity: needs to use a walker for activity Visit Report/Discharge Packet Instructions: Clopidogrel (Alternative Therapy), DI for Heart Failure, DI for Stroke-Ischemic Discharge Data Primary Care Provider: Jin Maxwell Quality Stroke Contraindication Not Initiating IV-Tpa: Contraindicated (Outside of window) Onset of Symptoms Date: 02/22/21 Symptom Onset Unknown: Yes Contraindication Antithromb by Day Two: Contraindicated Rehab Services Assessed: Rehabilitation therapy VTE Deep Vein Thrombosis/Pulmonary Embolism Present on Admission: No
== END 2021-02-24 16:30 | disposition home or self-care (01) ==
LOC: ED 14:54 → AC 15:30
PROVIDERS: Nurse Practitioner Family; Admitting Provider Internal Medicine; Emergency Provider Emergency Medicine; Family Provider Family Medicine; PCP Family Medicine; Referring Provider Emergency Medicine; Visit Provider Internal Medicine
DX: I63.9 Cerebral infarction, unspecified (principal); G81.91 Hemiplegia, unspecified affecting right dominant side; I10 Essential (primary) hypertension; R29.702 NIHSS score 2; Z20.822 Contact with and (suspected) exposure to COVID-19; Z87.891 Personal history of nicotine dependence
CPT/HCPCS: 36415; 70450; 70548; 70553; 80048; 80053; 80061; 81003; 82550; 82553; 83036; 83735; 84484; 85025; 85610; 85730; 87635; 93005; 96372; 97116; 97161; 97166; 97530; 99285; C9803; G0378; A9579; J1650

== ENCOUNTER → 2021-08-06 11:01 | Outpatient (CLI) | payer MEDICARE, SELFPAY ==
--- NOTE | 2021-08-06 11:03 | DI.MRI.S_ITS ---
PROCEDURE: MR ANGIOLE RT W CON INDICATIONS: R/O RIGHT FOOT CLAUDICATION TECHNIQUE: Precontrast axial and coronal TruFISP acquired through the abdomen and pelvis. Multi-station dynamic coronal MRA using Care Bolus timing from the kidneys to the ankles during the administration of contrast, with 3-dimensional maximum intensity projection (MIP) reformats constructed. COMPARISON: [facility], CT, CT ABDOMEN PELVIS W CON, 11/17/2018, 10:39. FINDINGS: Image quality: Excellent. AORTA AND PELVIS NOT IMAGED. LOWER EXTREMITIES IMAGED. It is noted that the aorta and iliac arteries were widely patent in Nov, 2018, by previous CT. It is unlikely that they would have developed significant disease since that . Extravascular soft tissues: Visualized solid organs are normal in size on limited pre-contrast images. Bowel loops are normal in caliber. No free fluid. No retroperitoneal or mesenteric adenopathy by size criteria. No ventral hernias. Bones: Marrow demonstrates normal overall signal. BILATERAL LOWER EXTREMITIES: Right sided vessels: Common femoral, SFA, popliteal, and 3 runoff vessels are widely patent. Left sided vessels: Widely patent common femoral, SFA, popliteal, and three-vessel runoff. IMPRESSION: Unremarkable bilateral lower extremity MR angiogram from the inguinal ligaments to below the ankles. Dictated by: Michael Randle M.D. on 08/06/2021 at 13:08 Approved by: Michael Randle M.D. on 08/06/2021 at 13:25
== END ==
PROVIDERS: Family Provider Family Medicine; PCP Physician Assistant Medical; Referring Provider Psychiatry & Neurology Neurology; Visit Provider Psychiatry & Neurology Neurology
DX: M79.89 Other specified soft tissue disorders (principal); R22.41 Localized swelling, mass and lump, right lower limb; M62.461 Contracture of muscle, right lower leg; Z86.73 Personal history of transient ischemic attack (TIA), and cerebral infarction without residual deficits
CPT/HCPCS: C8912; A9579

== ENCOUNTER → 2021-12-19 08:45 | Outpatient (CLI) | payer MEDICARE, SELFPAY ==
--- NOTE | 2021-12-19 08:47 | DI.MG.S_ITS ---
MALE BILATERAL DIGITAL DIAGNOSTIC MAMMOGRAM 3D/2D: 12/19/2021 CLINICAL: Left nipple sensitivity. No prior exams were available for comparison. There is probable gynecomastia in the left breast that correlates with palpable abnormality. No significant masses, calcifications, or other findings are seen in either breast. IMPRESSION: INCOMPLETE: NEEDS ADDITIONAL IMAGING EVALUATION A targeted ultrasound of the left breast is recommended to further evaluate for gynecomastia and will be performed immediately following this exam. This exam was interpreted at Station ID: [id number]. NOTE: For mammograms, a report in lay terms will be sent to the patient. Approximately 15% of breast malignancies will not be visualized mammographically. In the management of a palpable breast mass, a negative mammogram must not discourage biopsy of a clinically suspicious lesion. Electronically Signed By: Francine Painter M.D. lk/:12/19/2021 10:15:41 ACR BI-RADS Category 0: Incomplete [id number]
--- NOTE | 2021-12-19 08:47 | DI.US.S_ITS ---
LIMITED ULTRASOUND OF LEFT BREAST: 12/19/2021 CLINICAL: Left nipple tenderness. No prior exams were available for comparison. Real-time ultrasound of the left breast retroareolar was performed on the areas of interest. An scale images of the real-time examination were reviewed. There is gynecomastia in the left breast that correlates with palpable abnormality. IMPRESSION: BENIGN There is no sonographic evidence of malignancy. This exam was interpreted at Station ID: [id number]. Electronically Signed By: Francine beatty/:12/19/2021 10:21:56 letter sent: Clinical Evaluation Ultrasound BI-RADS: 2 Benign
== END ==
PROVIDERS: Family Provider Family Medicine; PCP Physician Assistant Medical; Referring Provider Physician Assistant Medical; Visit Provider Physician Assistant Medical
DX: R92.8 Other abnormal and inconclusive findings on diagnostic imaging of breast (principal); N63.0 Unspecified lump in unspecified breast; N64.89 Other specified disorders of breast
CPT/HCPCS: 76642; 77066; G0279

== ENCOUNTER → 2022-01-21 13:03 | Outpatient (CLI) | payer MEDICARE, SELFPAY ==
--- NOTE | 2022-01-21 13:05 | DI.RAD.S_ITS ---
PROCEDURE: XR HIP W PEL IF DONE HALEY MIN 4V INDICATIONS: BILATERAL HIP PAIN TECHNIQUE: AP pelvis with lateral view(s) of the bilateral hip(s). COMPARISON: None. FINDINGS: Bones: No fractures or dislocations. [id number] bilateral hip joint osteoarthritic changes are seen . No evidence of avascular necrosis of femoral head. Pelvic ring appears intact. No suspicious bony lesions. Soft tissues: The visualized bowel gas pattern is normal. No suspicious soft tissue calcifications. IMPRESSION: Symmetric appearing [id number] bilateral hip joint osteoarthritis. No fracture or dislocation. No evidence of avascular necrosis. Dictated by: Mati Shaffer M.D. on 01/21/2022 at 15:06 Approved by: Mati Shaffer M.D. on 01/21/2022 at 15:06
--- NOTE | 2022-01-21 13:05 | DI.RAD.S_ITS ---
PROCEDURE: XR LUMBAR SPINE MIN 4V INDICATIONS: BACK PAIN TECHNIQUE: 5 views of the lumbar spine were acquired, including bilateral oblique views. COMPARISON: [facility], CR, XR LUMBAR SPINE MIN 4V, 08/20/2018, 10:06. FINDINGS: Bones: 5 nonrib-bearing vertebrae are present. There is mild levoscoliosis of thoracolumbar spine centered at T12-L1 level. 5 millimeter retrolisthesis of L1 on L2 is seen. Loss of disc height and degenerative endplate changes with bilateral facet arthrosis throughout lumbar spine is seen.. No vertebral body compression fractures. No suspicious bony lesions. Soft tissues: Overlying bowel gas pattern is normal. No suspicious soft tissue calcifications. Oblique images: No gross pars defects. IMPRESSION: Mild scoliosis as above. No acute compression fracture . Grade 1 retrolisthesis of L1 on L2. Degenerative disc disease throughout lumbar spine. No gross pars defects. Dictated by: Mati Shaffer M.D. on 01/21/2022 at 15:09 Approved by: Mati Shaffer M.D. on 01/21/2022 at 15:10
== END ==
PROVIDERS: Family Provider Family Medicine; PCP Physician Assistant Medical; Referring Provider Physical Medicine & Rehabilitation; Visit Provider Physical Medicine & Rehabilitation
DX: M96.1 Postlaminectomy syndrome, not elsewhere classified (principal); M47.817 Spondylosis without myelopathy or radiculopathy, lumbosacral region; M47.816 Spondylosis without myelopathy or radiculopathy, lumbar region; M41.85 Other forms of scoliosis, thoracolumbar region; M43.16 Spondylolisthesis, lumbar region; M51.36 Other intervertebral disc degeneration, lumbar region; M16.0 Bilateral primary osteoarthritis of hip; M17.11 Unilateral primary osteoarthritis, right knee; M25.552 Pain in left hip; M25.551 Pain in right hip
CPT/HCPCS: 72110; 73522; 99214

== ENCOUNTER → 2022-07-31 10:01 | Outpatient (CLI) | payer MEDICARE, SELFPAY ==
--- NOTE | 2022-07-31 | DI.CT.S_ITS ---
PROCEDURE: CT KIDNEY URETER BLADDER (KUB) INDICATIONS: KUB TECHNIQUE: Axial sections were acquired from the lung bases to the pubic symphysis. Coronal and sagittal reformats were performed. For radiation dose reduction, the following was used: automated exposure control, adjustment of mA and/or kV according to patient size. COMPARISON: Outside Film, CT, CT ABDOMEN PELVIS WITHOUT CONTRAST, 01/05/2022, 9:27. Outside Film, MR, MR LUMBAR SPINE WITHOUT CONTRAST, 07/17/2022, 13:09. FINDINGS: Image quality: Excellent. Lung bases: Unremarkable. Heart: No significant findings. URINARY: Right Kidney: Removed. Left Kidney: There is a left-sided ureteral stent, which is in good position. There is a nonobstructing left-sided kidney stone that measures up to 3 mm, as on series 2, image 28. Additional nonobstructing stone can be seen inferiorly, as on series 2, image 34 measuring 4-5 mm and measuring 550 Hounsfield units. Additional tiny 1 mm stones are also seen within the left kidney. The burden of left-sided kidney stones is clearly decreased compared to the 01/05/2022 examination. No hydronephrosis is seen. Water density left renal cysts are seen, including an exophytic cyst laterally measuring 3.3 cm. Left Ureter: No hydroureter is seen. Bladder: Normal wall thickness. No stones. ABDOMEN: Liver: Unremarkable. Gallbladder: Unremarkable. Biliary ducts: Unremarkable. Pancreas: Unremarkable. Spleen: Unremarkable. Adrenal Glands: Unremarkable. Stomach and Bowel: Stomach, small bowel loops, and colon are unremarkable. Peritoneum: No abnormal intraperitoneal fluid. No free air. Ventral Wall: No hernia. Abdominal Nodes: No enlarged retroperitoneal or mesenteric lymph nodes. Vessels: Aorta and inferior vena cava are normal in size. PELVIS: Pelvic Organs: The prostate is enlarged, measuring 6.8 cm transversely. Pelvic Nodes: Unremarkable. Miscellaneous: No inguinal hernias are seen. Bones: [id number] levoconvex thoracolumbar scoliosis is seen. Age-appropriate bony degenerative changes are seen. IMPRESSION: There is a left-sided double-J stent in good position. Nonobstructing left-sided kidney stones are seen that measure up to 4-5 mm. Note is made that the burden of left-sided kidney stones is clearly decreased compared to the 01/05/2022 CT. Status post right nephrectomy. Simple appearing left renal cysts can be seen. Additional findings: [id number] levoconvex lumbar scoliosis Enlarged prostate Dictated by: Chan Colbert M.D. on 07/31/2022 at 11:03 Approved by: Chan Colbert M.D. on 07/31/2022 at 11:08
== END ==
PROVIDERS: Family Provider Family Medicine; PCP Physician Assistant Medical; Referring Provider Urology; Visit Provider Urology
DX: N20.0 Calculus of kidney (principal); N18.31 Chronic kidney disease, stage 3a; N28.1 Cyst of kidney, acquired; M41.9 Scoliosis, unspecified; N40.0 Benign prostatic hyperplasia without lower urinary tract symptoms; Z90.5 Acquired absence of kidney; Z96.0 Presence of urogenital implants
CPT/HCPCS: 36415; 74176; 80048

== ENCOUNTER → 2022-07-31 10:05 | Outpatient (CLI) | payer MEDICARE, SELFPAY ==
[2022-07-31 12:40] LABS: BUN Creatinine Ratio 20.4 (6-22); Blood Urea Nitrogen 23 mg/dL (9-20); Calcium 9.5 mg/dL (8.4-10.2); Carbon Dioxide 29 mmol/L (22-32); Chloride 104 mmol/L (98-107); Estimated Glomerular Filt Rate > 60 mL/min (>60); Glucose 100 mg/dL (80-110); HEMOLYSIS < 15 (0-50); Sodium 141 mmol/L (137-145)
== END ==
PROVIDERS: Family Provider Family Medicine; PCP Physician Assistant Medical; Referring Provider Internal Medicine Nephrology; Visit Provider Internal Medicine Nephrology
DX: N18.31 Chronic kidney disease, stage 3a (principal)
CPT/HCPCS: 36415; 80048

== ENCOUNTER 2022-08-08 08:46 | Outpatient (CLI) | payer MEDICARE, SELFPAY ==
[2022-08-08] VITALS (8 sets, daily range): BP systolic 119–158; BP diastolic 72–90; PULSE 53–57; RESP 11–20; TEMP 36.2; O2SAT 98–100
--- NOTE | 2022-08-08 08:48 | DI.RAD.S_ITS ---
PROCEDURE: PAIN L/S TRANSFORAMINAL INJECT INDICATIONS: SPONDYLOSIS COMPARISON: Outside Film, MR, MR LUMBAR SPINE WITHOUT CONTRAST, 07/17/2022, 13:09. FINDINGS: Fluoroscopic spot filming was performed to verify placement of a spinal needle at the L3-L4 level, as labeled on the films. Appropriate location of the needle tip was confirmed by injection of iodinated contrast. IMPRESSION: Intraprocedural examination within normal limits. Dictated by: Chan Colbert M.D. on 08/08/2022 at 19:44 Approved by: Chan Colbert M.D. on 08/08/2022 at 19:44
[2022-08-08] MEDS: MIDAZOLAM 2 MG/2 ML VIAL IV (10:14)
[2022-08-08] MEDS: BUPIVACAINE 0.25% (PF) VIAL 2 ML INJ (10:18)
[2022-08-08] MEDS: BETAMETHASONE 30 MG/5 ML MDV 6 MG INJ (10:18)
[2022-08-08] MEDS: DEXAMETHASONE 10 MG/ML VIAL 20 MG INJ (10:19)
[2022-08-08] MEDS: IOPAMIDOL 15 ML VIAL 3 ML INJ (10:19)
--- NOTE | 2022-08-08 10:28 | P.PCN_ITS ---
Date/Time/Diagnoses Date of procedure: 08/08/22 Time of procedure: 10:28 Pre-procedure diagnosis: 1. FORAMINAL STENOSIS WITH LE SYMPTOMS Post-procedure diagnosis: same Procedure Notes Procedure: 1. FLUOROSCOPICALLY GUIDED CONTRAST CONTROLLED TRANSFORAMINAL EPIDURAL STEROID INJECTION - RIGHT L3/4 TFESI Indications: Jacek is referred by DEQUAN Porter for treatment of Foraminal Stenosis with right LE Symptoms Physician: Justin Costello Total Fluoroscopy time (seconds): 7 Total sedation minutes: 11 Complications: none Procedure in detail & Post-procedure care: FINDINGS Foraminal Nerve Root Compression secondary to disc disease and facet hypertrophy DESCRIPTION OF PROCEDURE Following review of allergy and review of potential side effects and complications, including, but not necessarily limited to, infection, allergic reaction, local tissue breakdown, stroke, temporary or permanent nerve injury, paralysis, and possible , the patient indicated that the patient understood and agreed to proceed. An informed consent document was signed by the patient, witnessed by a nurse, and placed in the patient's chart. Additionally, other treatment options including medications, modalities, and physical therapy were reviewed with the patient. After review of previous anaesthesic history and IV conscious sedation the patient was deemed safe to proceed with today?s procedure with IV conscious sedation as ASA class II designation. Safety time-out was performed to confirm patient ID, procedure to be performed and site of procedure. IV sedation was accomplished with a combination of 2mg of Versed was administered by the RN after DO order, titrated to patient comfort during the course of the procedure while the patient remained responsive to all verbal commands In the prone position following sterile prep and drape of the lumbar region, the right L3/4 posterior neuroforamen was identified fluoroscopically. The skin was anesthetized via a 25-gauge 1.5-inch needle with 1% lidocaine solution. At this point, a 25-gauge 3.5-inch spinal needle was atraumatically introduced and advanced under fluoroscopic guidance through the posterior right L3/4 neuroforamen to approximately the anterior aspect of the canal. Depth was confirmed on lateral view. Following negative aspiration, injection of approximately 1.5 cc of Isovue 200 under live fluoroscopy in the AP view confir med excellent flow along the nerve root, into the epidural space without vascular or intrathecal uptake observed Radiological data, including multiple fluoroscopic views of the lumbosacral spine, reveal a spinal needle at the right L3/4 posterior neuroforamen. Subsequent views show flow of contrast material flowing superiorly and inferiorly along the nerve root confirming epidural flow. Subsequently, a test dose of 1.5 cc of 1% lidocaine solution was administered and patient was observed for two minutes for signs or symptoms of complications, including abdominal pain, shortness of breath, bilateral upper or lower extremity weakness, nausea and vomiting, prior to steroid injection. At this point, a total of 3cc or 20mg of dexamethasone and 6mg of betamethasone was injected without incident. The patient tolerated the procedure well without signs or symptoms of complications prior to transfer to the recovery area continued monitoring without incident. The patient was then transferred to the recovery area where they were observed for an appropriate time after the injection. The patient reported a VAS score of 7 prior to the procedure and a post-procedure VAS of 0. POST OP INSTRUCTIONS The patient was provided a Pain Log to continue to record their response to the target-specific procedure prior to follow-up visit with their referring physi charles. Additionally, specific post-injection care instructions and a contact number to our office were provided if concerns arise regarding possible complications associated with the procedure are suspected.
== END 2022-08-08 10:48 | disposition home or self-care (01) ==
PROVIDERS: Family Provider Family Medicine; PCP Physician Assistant Medical; Referring Provider Physical Medicine & Rehabilitation; Visit Provider Physical Medicine & Rehabilitation
DX: M48.061 Spinal stenosis, lumbar region without neurogenic claudication (principal); M51.16 Intervertebral disc disorders with radiculopathy, lumbar region
CPT/HCPCS: 64483; 99152; J0702; J1100; J2250; J3490

== ENCOUNTER → 2022-09-17 09:54 | Outpatient (CLI) | payer MEDICARE, SELFPAY ==
--- NOTE | 2022-09-17 10:02 | DI.RAD.S_ITS ---
PROCEDURE: XR ABDOMEN 1V INDICATIONS: NEPHROLITHIASIS TECHNIQUE: One view of the abdomen acquired. COMPARISON: [facility], CT, CT KIDNEY URETER BLADDER (KUB), 07/31/2022, 10:21. FINDINGS: Surgical changes and devices: Right upper quadrant clips. Bowel: Overall moderate fecal loading. Soft tissues: No discrete renal calculi. Evaluation is somewhat limited by overlapping bowel gas and stool. Bones: Levoconvex spinal curvature with spondylotic changes. Bilateral hip arthrosis. IMPRESSION: No discrete renal calculi identified. Evaluation is somewhat limited by overlapping bowel gas and stool. Consider CT follow-up for stone burden if necessary. Dictated by: Don Harkins M.D. on 09/17/2022 at 11:57 Approved by: Don Harkins M.D. on 09/17/2022 at 12:00
[2022-09-17 11:25] LABS: Add Manual Diff / Slide Review NO; Basophils Absolute Auto 0 /uL (0-100); Basophils Percent Auto 0.8 % (0-2); Eosinophils Absolute Auto 100 /uL (0-450); Eosinophils Percent Auto 2.5 % (2-4); Hematocrit 41.6 % (41-53); Hemoglobin 13.8 g/dL (13.5-17.5); Lymphocytes Absolute Auto 1500 /uL (1100-4500); Lymphocytes Percent Auto 28.5 % (25-40); Mean Corpuscular HGB Conc 33.2 % (30-36); Mean Corpuscular Volume 87.4 fL (80-100); Monocytes Absolute Auto 500 /uL (0-900); Neutrophils Absolute Auto 3100 /uL (1500-7000); Neutrophils Percent Auto 58.2 % (50-75); Platelet Count 145 X10^3/uL (150-400); Red Blood Cell Count 4.76 X10^6/uL (4.5-5.9); Red Cell Distribution Width 13.7 % (11.6-14.8); White Blood Cell Count 5.3 X10^3/uL (4.5-11.0)
[2022-09-17 11:57] LABS: BUN Creatinine Ratio 15.9 (6-22); Blood Urea Nitrogen 18 mg/dL (9-20); Carbon Dioxide 29 mmol/L (22-32); Chloride 106 mmol/L (98-107); Estimated Glomerular Filt Rate > 60 mL/min (>60); Glucose 106 mg/dL (80-110); HEMOLYSIS < 15 (0-50); Sodium 140 mmol/L (137-145)
[2022-09-17 12:06] LABS: Creatinine Urine Random 130.9 mg/dL
[2022-09-17 12:11] LABS: Microalbumi Creatinin Ratio Ur 6.8 ug/mg CR (<30); Microalbumin Urine Random 0.9 mg/dL (0-1.6)
[2022-09-17 12:13] LABS: Vitamin D 25 Hydroxy (D3) 54.2 ng/mL (30.0-100.0)
[2022-09-17 12:14] LABS: Protein (Total) Urine Random < 5 mg/dL (0-12); Protein Creatinine Ratio Urine 0.03 GRAM/24H
[2022-09-19 08:30] LABS: Parathyroid Hormone Int 72 pg/mL (15-65)
== END ==
PROVIDERS: Internal Medicine Nephrology; Family Provider Family Medicine; PCP Physician Assistant Medical; Referring Provider Urology; Visit Provider Urology
DX: N20.0 Calculus of kidney (principal); N18.31 Chronic kidney disease, stage 3a
CPT/HCPCS: 36415; 74018; 80048; 82043; 82306; 82570; 83970; 84156; 85025

== ENCOUNTER → 2022-10-03 12:02 | Outpatient (CLI) | payer MEDICARE, SELFPAY ==
[2022-10-03 12:48] LABS: Add Manual Diff / Slide Review NO; Basophils Absolute Auto 0 /uL (0-100); Basophils Percent Auto 0.8 % (0-2); Eosinophils Absolute Auto 200 /uL (0-450); Eosinophils Percent Auto 3.6 % (2-4); Hematocrit 40.6 % (41-53); Hemoglobin 13.9 g/dL (13.5-17.5); Lymphocytes Absolute Auto 1400 /uL (1100-4500); Lymphocytes Percent Auto 30.5 % (25-40); Mean Corpuscular HGB Conc 34.2 % (30-36); Mean Corpuscular Hemoglobin 29.2 PG (26-34); Mean Corpuscular Volume 85.2 fL (80-100); Monocytes Absolute Auto 500 /uL (0-900); Monocytes Percent Auto 10.5 % (3-14); Neutrophils Absolute Auto 2600 /uL (1500-7000); Neutrophils Percent Auto 54.6 % (50-75); Platelet Count 134 X10^3/uL (150-400); Red Blood Cell Count 4.76 X10^6/uL (4.5-5.9); Red Cell Distribution Width 13.5 % (11.6-14.8); White Blood Cell Count 4.7 X10^3/uL (4.5-11.0)
[2022-10-03 13:04] LABS: BUN Creatinine Ratio 15.2 (6-22); Blood Urea Nitrogen 19 mg/dL (9-20); Calcium 9.2 mg/dL (8.4-10.2); Carbon Dioxide 29 mmol/L (22-32); Chloride 105 mmol/L (98-107); Estimated Glomerular Filt Rate > 60 mL/min (>60); Glucose 103 mg/dL (80-110); HEMOLYSIS < 15 (0-50); Potassium 4.6 mmol/L (3.4-5.1); Sodium 139 mmol/L (137-145)
[2022-10-03 15:00] LABS: Creatinine Urine Random 207.9 mg/dL
[2022-10-03 15:05] LABS: Microalbumi Creatinin Ratio Ur 8.6 ug/mg CR (<30); Microalbumin Urine Random 1.8 mg/dL (0-1.6)
[2022-10-03 15:06] LABS: Protein (Total) Urine Random < 5 mg/dL (0-12); Protein Creatinine Ratio Urine 0.02 GRAM/24H
[2022-10-03 15:16] LABS: Vitamin D 25 Hydroxy (D3) 55.1 ng/mL (30.0-100.0)
[2022-10-06 10:34] LABS: Parathyroid Hormone Int 70 pg/mL (15-65)
== END ==
PROVIDERS: Family Provider Family Medicine; PCP Physician Assistant Medical; Referring Provider Internal Medicine Nephrology; Visit Provider Internal Medicine Nephrology
DX: N18.31 Chronic kidney disease, stage 3a (principal); I10 Essential (primary) hypertension; I99.9 Unspecified disorder of circulatory system; N18.9 Chronic kidney disease, unspecified; M54.16 Radiculopathy, lumbar region; M51.26 Other intervertebral disc displacement, lumbar region; M17.0 Bilateral primary osteoarthritis of knee; M96.1 Postlaminectomy syndrome, not elsewhere classified; R26.1 Paralytic gait; Z68.22 Body mass index [BMI] 22.0-22.9, adult
CPT/HCPCS: 36415; 80048; 82043; 82306; 82570; 83970; 84156; 85025; 99215

== ENCOUNTER 2022-10-31 07:16 | Outpatient (CLI) | payer MEDICARE, SELFPAY ==
[2022-10-31] VITALS (8 sets, daily range): BP systolic 133–168; BP diastolic 71–91; PULSE 55–64; RESP 11–18; TEMP 36.5; O2SAT 96–100
--- NOTE | 2022-10-31 07:17 | DI.RAD.S_ITS ---
PROCEDURE: PAIN L/S TRANSFORAMINAL INJECT INDICATIONS: SPONDYLOSIS COMPARISON: [facility], , PAIN L/S TRANSFORAMINAL INJECT, 08/08/2022, 11:17. FINDINGS: Fluoroscopic spot filming was performed to verify placement of a spinal needle at the L3-L4 level, as labeled on the films. Appropriate location of the needle tip was confirmed by injection of iodinated contrast. IMPRESSION: Intraprocedural examination within normal limits. Dictated by: Chan Colbert M.D. on 10/31/2022 at 10:08 Approved by: Chan Colbert M.D. on 10/31/2022 at 10:08
[2022-10-31] MEDS: MIDAZOLAM 2 MG/2 ML VIAL IV (09:21)
[2022-10-31] MEDS: BUPIVACAINE 0.25% (PF) VIAL 2 ML INJ (09:27)
[2022-10-31] MEDS: methylPREDNISolone acetate 80 MG/ML VIAL INJ (09:27)
[2022-10-31] MEDS: DEXAMETHASONE 10 MG/ML VIAL 20 MG INJ (09:27)
[2022-10-31] MEDS: IOPAMIDOL 15 ML VIAL 3 ML INJ (09:28)
--- NOTE | 2022-10-31 09:37 | P.PCN_ITS ---
Date/Time/Diagnoses Date of procedure: 10/31/22 Time of procedure: 09:37 Pre-procedure diagnosis: 1. FORAMINAL STENOSIS WITH LE SYMPTOMS Post-procedure diagnosis: same Procedure Notes Procedure: 1. FLUOROSCOPICALLY GUIDED CONTRAST CONTROLLED TRANSFORAMINAL EPIDURAL STEROID INJECTION - RIGHT L3/4 TFESI Indications: Jacek is referred by DEQUAN Porter for treatment of Foraminal Stenosis with right LE Symptoms Physician: Justin Costello Total Fluoroscopy time (seconds): 11 Total sedation minutes: 12 Complications: none Procedure in detail & Post-procedure care: FINDINGS Foraminal Nerve Root Compression secondary to disc disease and facet hypertrophy DESCRIPTION OF PROCEDURE Following review of allergy and review of potential side effects and complications, including, but not necessarily limited to, infection, allergic reaction, local tissue breakdown, stroke, temporary or permanent nerve injury, paralysis, and possible , the patient indicated that the patient understood and agreed to proceed. An informed consent document was signed by the patient, witnessed by a nurse, and placed in the patient's chart. Additionally, other treatment options including medications, modalities, and physical therapy were reviewed with the patient. After review of previous anaesthesic history and IV conscious sedation the patient was deemed safe to proceed with today?s procedure with IV conscious sedation as ASA class II designation. Safety time-out was performed to confirm patient ID, procedure to be performed and site of procedure. IV sedation was accomplished with a combination of 2mg of Versed was administered by the RN after DO order, titrated to patient comfort during the course of the procedure while the patient remained responsive to all verbal commands In the prone position following sterile prep and drape of the lumbar region, the right L3/4 posterior neuroforamen was identified fluoroscopically. The skin was anesthetized via a 25-gauge 1.5-inch needle with 1% lidocaine solution. At this point, a 25-gauge 3.5-inch spinal needle was atraumatically introduced and advanced under fluoroscopic guidance through the posterior right L3/4 neuroforamen to approximately the anterior aspect of the canal. Depth was confirmed on lateral view. Following negative aspiration, injection of approximately 1.5 cc of Isovue 200 under live fluoroscopy in the AP view confi rmed excellent flow along the nerve root, into the epidural space without vascular or intrathecal uptake observed Radiological data, including multiple fluoroscopic views of the lumbosacral spine, reveal a spinal needle at the right L3/4 posterior neuroforamen. Subsequent views show flow of contrast material flowing superiorly and inferiorly along the nerve root confirming epidural flow. Subsequently, a test dose of 1.5 cc of 1% lidocaine solution was administered and patient was observed for two minutes for signs or symptoms of complications, including abdominal pain, shortness of breath, bilateral upper or lower extremity weakness, nausea and vomiting, prior to steroid injection. At this point, a total of 3cc or 20mg of dexamethasone and 80mg of depomedrol was injected without incident. The patient tolerated the procedure well without signs or symptoms of complications prior to transfer to the recovery area continued monitoring without incident. The patient was then transferred to the recovery area where they were observed for an appropriate time after the injection. The patient reported a VAS score of 7 prior to the procedure and a post-procedure VAS of 1. POST OP INSTRUCTIONS The patient was provided a Pain Log to continue to record their response to the target-specific procedure prior to follow-up visit with their referring physic herbert. Additionally, specific post-injection care instructions and a contact number to our office were provided if concerns arise regarding possible complications associated with the procedure are suspected.
--- NOTE | 2022-10-31 10:42 | PC.NURSE ---
On arrival to the recovery area it was reported that the patient had marked weakness in his legs from the procedure. Patient was kept in recovery until his legs were no longer numb and he returned to his usual gate at 1041. Patient advised to take it easy today. Patient's was notified to be aware of possible leg weakness and to walk at his side when transferring from the car to their home.
== END 2022-10-31 10:41 | disposition home or self-care (01) ==
LOC: RAD 07:17
PROVIDERS: Family Provider Family Medicine; PCP Physician Assistant Medical; Referring Provider Physical Medicine & Rehabilitation; Visit Provider Physical Medicine & Rehabilitation
DX: N20.0 Calculus of kidney; M48.061 Spinal stenosis, lumbar region without neurogenic claudication; M51.16 Intervertebral disc disorders with radiculopathy, lumbar region
CPT/HCPCS: 64483; 74018; 99152; J0702; J1040; J1100; J2250; J3490

== ENCOUNTER → 2022-10-31 07:21 | Outpatient (CLI) | payer MEDICARE, SELFPAY ==
--- NOTE | 2022-10-31 | DI.RAD.S_ITS ---
PROCEDURE: XR ABDOMEN 1V INDICATIONS: Calculus of kidney TECHNIQUE: One view of the abdomen acquired. COMPARISON: [facility], , XR ABDOMEN 1V, 09/17/2022, 11:13. FINDINGS: Surgical changes and devices: Right upper quadrant surgical clips Bowel: Bowel gas pattern is normal. Soft tissues: Small to 3 mm calcifications project over the periphery of the left renal shadow, similar prior Bones: Convex left scoliosis, unchanged from the prior IMPRESSION: Probable small left renal calculi, similar to the prior Approved by: Reed Morales M.D. on 10/31/2022 at 10:53
== END ==
PROVIDERS: Family Provider Family Medicine; PCP Physician Assistant Medical; Referring Provider Urology; Visit Provider Urology
DX: N20.0 Calculus of kidney (principal)
CPT/HCPCS: 74018

== ENCOUNTER → 2022-11-04 07:47 | Outpatient (CLI) | payer MEDICARE, SELFPAY ==
--- NOTE | 2022-11-04 | DI.US.S_ITS ---
PROCEDURE: US RENAL COMPLETE INDICATIONS: LEFT KIDNEY CALCULUS. RIGHT KIDNEY NEPHRECTOMY. TECHNIQUE: Real-time scanning was performed of the kidneys and bladder, with image documentation. COMPARISON: None. FINDINGS: Kidneys: Right kidney is surgically absent. Left kidney measures 12.3 cm, cortex measures 1.5 cm. Normal echogenicity. Multiple renal stones, 2 of which measure greater than 4 mm, the remaining or punctate. No hydronephrosis. No complex renal cystic lesions which require follow-up. Bladder: Pre-void bladder volume is 45 mL. Post-void residual was not documented. Pre-void images demonstrate no intraluminal masses or stones. On pre-void images, no ureteral jets are noted with color Doppler interrogation. (Of note, ureteral jets may not be detectable in up to 25% of cases due to insufficient differences in specific gravity between ureteral and bladder urine). Bladder debris present. Miscellaneous: No free pelvic fluid. Prostatomegaly, measuring 5.4 x 7.1 x 4.5 cm. The central portion demonstrates low echogenicity relative to the periphery. IMPRESSION: Large burden of non obstructing renal stones, largest pair measure 4-5 mm. No hydronephrosis. Prostatomegaly, with a centrally hypoechoic component. Underlying mass is not entirely excluded, as the central portion appears well-defined. Consider prostate MRI if PSA is elevated. Prior left nephrectomy. Dictated by: Ko Joseph M.D. on 11/04/2022 at 11:28 Approved by: Ko Joseph M.D. on 11/04/2022 at 11:31
== END ==
PROVIDERS: Family Provider Family Medicine; PCP Physician Assistant Medical; Referring Provider Urology; Visit Provider Urology
DX: N20.0 Calculus of kidney (principal); N40.0 Benign prostatic hyperplasia without lower urinary tract symptoms; Z90.5 Acquired absence of kidney
CPT/HCPCS: 76770

== ENCOUNTER → 2023-01-09 07:13 | Outpatient (CLI) | payer MEDICARE, SELFPAY ==
--- NOTE | 2023-01-09 | DI.ECHO.S_ITS ---
[facility] +---------+ : : [address] [place] : : : : [id number] : : : : Phone: [phone]---------+ Echocardiogram Report + + :Name: YOKO ARTIS Study Date: 01/09/2023 Height: 70 in : :[facility] ReadingLocation: Weight: 148 lb : : Gender: Male BSA: 1.8 m2 : :: 1945 Age: 78 yrs BP: 124/73 mmHg: :Reason For Study: CONGENITAL INSUFFICIENCY OF AORTIC VALVE : :Ordering Physician: ALEJANDRA, : :DARREL Performed By: Oralia Zhu : :Referring: DARREL ROBERTS : + + Interpretation Summary The patient was in sinus bradycardia with heart rates between 48-53 bpm during the exam. Left ventricular systolic function is normal. The ejection fraction is estimated to be 60-65%. There has been no significant change in LVEF since the previous exam. The right ventricle is normal in size and function. There is mild to moderate mitral regurgitation. Compared to the prior echo study, there has been an increase in the severity of mitral regurgitation. The aortic valve is bicuspid. The aortic valve is mildly calcified. There is no aortic valve stenosis. There is mild tricuspid regurgitation. The right ventricular systolic pressure is estimated to be at least 20 mmHg based on an estimated right atrial pressure of 3 mm Hg. Mild atherosclerotic plaque(s) in the aortic arch. Procedure: A two-dimensional transthoracic echocardiogram with color flow and Doppler was performed. The study quality was technically adequate. Comparison is made with the echocardiogram of 03/14/2021. The patient was in sinus bradycardia with heart rates between 48-53 bpm during the exam. Left Ventricle: The left ventricle is normal in size and wall thickness. There is no thrombus. A false chord is noted (normal variant). The ejection fraction is estimated to be 60-65%. Left ventricular systolic function is normal. There has been no significant change since the previous exam. There are no focal wall motion abnormalities. MV E/A: 1.0 Med Peak E' Elgin: 7.0 cm/sec E/E' med: 9.1 No significant diastolic dysfunction. Right Ventricle: The right ventricle is normal in size and function. Atria: The left atrial size is normal. There has been no significant change since the previous study. Right atrial size is normal. There is no Doppler evidence for an interatrial shunt. Mitral Valve: The mitral valve leaflets appear mildly thickened, but open well. There is mild mitral annular calcification. Redundant elongated chordae are noted. There is mild to moderate mitral regurgitation. Compared to the prior echo study, there has been an increase in the severity of mitral regurgitation. Aortic Valve: The aortic valve is mildly calcified. The aortic valve is bicuspid. There is mild aortic valve sclerosis. There is no aortic valve stenosis. There is trace aortic regurgitation. There has been no significant change since the previous study. Tricuspid Valve: The tricuspid valve is normal. There is mild tricuspid regurgitation. The right ventricular systolic pressure is estimated to be at least 20 mmHg based on an estimated right atrial pressure of 3 mm Hg. Pulmonic Valve: The pulmonic valve is not well visualized. There is no pulmonic valvular regurgitation. Great Vessels: The aortic root is normal size. The ascending aorta could not be visualized. Mild atherosclerotic plaque(s) in the aortic arch. The IVC is of normal diameter and collapses greater than 50% with a sniff. This suggests a low right atrial pressure of 3 mm Hg. Pericardium/ Pleura There is no pericardial effusion. There is an anterior echo-free space consistent with a fat pad. There is no pleural effusion. MMode/2D Measurements & Calculations LVIDd: 4.6 cm LVOT diam: 2.2 cm LVIDs: 3.0 cm Ao root diam: 3.6 cm FS: 34.8 % Ao Arch Diam (Prox Trans): 2.6 cm IVSd: 0.77 cm LVPWd: 0.62 cm LV langley. diameter/BSA (cm/m^2): 2.5 LV sys. diameter/BSA (cm/m^2): 1.6 LA A2 area: 16.1 cm2 RA long axis: 3.7 cm LA A4 area: 13.8 cm2 RA area: 10.0 cm2 LA length (vol): 4.2 cm RA vol: 22.8 ml LA vol: 45.2 ml RA : 12.4 ml/m2 LA vol index: 24.6 ml/m2 IVC diam: 1.6 cm RVD1 (basal): 3.1 cm RVD2 (mid): 2.4 cm TAPSE: 1.7 cm Doppler Measurements & Calculations Ao V2 max: 178.7 cm/sec LVOT Max Elgin: 102.5 cm/sec Ao V2 mean: 133.4 cm/sec LV V1 max P.2 mmHg Ao max P.8 mmHg LV V1 VTI: 23.4 cm Ao mean P.8 mmHg DIETER(I,D): 2.0 cm2 Ao V2 VTI: 44.7 cm DIETER(V,D): 2.2 cm2 sev ratio: 0.52 DIETER indexed to BSA (cm^2/m^2): 1.1 MV E max elgin: 63.5 cm/sec TR max elgin: 206.8 cm/sec MV A max elgin: 61.1 cm/sec TR max P.1 mmHg MV E/A: 1.0 PA V2 max: 89.6 cm/sec Med Peak E' Elgin: 7.0 cm/sec PA V2 mean: 62.3 cm/sec E/E' med: 9.1 PA mean P.7 mmHg Lat Peak E' Elgin: 8.5 cm/sec PA pr(Accel): 19.1 mmHg E/E' lat: 7.4 E/e' average: 8.3 MV dec time: 0.29 sec SV(LVOT): 91.2 ml Reading Physician:10:44 AM
--- NOTE | 2023-01-09 07:14 | DI.MRI.S_ITS ---
PROCEDURE: MR KNEE RT WO CON INDICATIONS: Right knee djd TECHNIQUE: Noncontrast sagittal PD fast spin echo and T2 fast spin echo with fat saturation, sagittal 3-D FLASH with fat saturation; coronal T1 spin echo and PD fast spin echo with fat saturation, and axial PD fast spin echo with fat saturation through the knee. COMPARISON: [facility], CR, XR KNEE 4+ VIEWS RIGHT, 12/18/2022, 15:33. FINDINGS: Image quality: Excellent. Menisci: There is complex tear of the medial meniscus involving the posterior horn, body and anterior horn. There is non displaced horizontal tear of the anterior horn, body and posterior of the lateral meniscus. Cruciate ligaments: The anterior and posterior cruciate ligaments appear intact. Medial structures: The medial collateral ligament appears intact. The semimembranosus tendon insertions and meniscocapsular junction appear intact. Visualized portions of the pes anserinus tendons appear normal. No abnormal bursal fluid. Lateral structures: The lateral collateral ligament, long and short heads of the biceps femoris tendon appear intact. The popliteus tendon appears normal. Iliotibial band appears normal. Anterior structures: The quadriceps and patellar tendons appear intact. Patellar alignment is normal. No femoral trochlear dysplasia or ventral trochlear prominence. No edema in the infrapatellar fat pad. Bones and cartilage: No bone marrow contusions or fractures. Tricompartmental cartilage thinning and fibrillation, most pronounced in the medial femorotibial compartment. Joint space: There is small knee joint fluid. No James's cyst. Normal appearing synovial plicae are incidentally noted. IMPRESSION: 1. Complex tear of the medial meniscus. 2. Nondisplaced horizontal tear of the lateral meniscus. 3. Tricompartmental cartilage loss, most pronounced in the medial femorotibial compartment. 4. Small knee joint effusion. Dictated by: Jasbir Edward M.D. on 01/09/2023 at 10:56 Approved by: Jasbir Edward M.D. on 01/09/2023 at 11:09
== END ==
PROVIDERS: Family Provider Family Medicine; PCP Physician Assistant Medical; Referring Provider Physical Medicine & Rehabilitation; Visit Provider Physical Medicine & Rehabilitation
DX: Q23.1 Congenital insufficiency of aortic valve (principal); I08.1 Rheumatic disorders of both mitral and tricuspid valves; I70.0 Atherosclerosis of aorta; S83.231A Complex tear of medial meniscus, current injury, right knee, initial encounter; S83.281A Other tear of lateral meniscus, current injury, right knee, initial encounter; M17.11 Unilateral primary osteoarthritis, right knee; M25.461 Effusion, right knee
CPT/HCPCS: 73721; 93306

== ENCOUNTER → 2023-02-04 11:35 | Outpatient (CLI) | payer MEDICARE, SELFPAY ==
--- NOTE | 2023-02-04 11:37 | DI.RAD.S_ITS ---
PROCEDURE: XR ELBOW RT MIN 3V INDICATIONS: RIGHT ELBOW PAIN TECHNIQUE: 3 views of the elbow were acquired. COMPARISON: None. FINDINGS: Bones: No fractures or dislocations. No suspicious bony lesions. Soft tissues: No elbow joint effusion. No suspicious soft tissue calcifications. IMPRESSION: No fracture. No osseous lesion. If symptoms and/or clinical suspicion for pathology persists, further assessment with repeat radiographs (7-10 days) or advanced imaging (e.g. CT, MRI or bone scan) should be considered. Dictated by: Poornima Wong MD, PhD on 02/04/2023 at 13:16 Approved by: Poornima Wong MD, PhD on 02/04/2023 at 13:16
--- NOTE | 2023-02-04 11:37 | DI.RAD.S_ITS ---
PROCEDURE: XR CERVICAL SPINE 4V OR 5V INDICATIONS: neck pain TECHNIQUE: 5 views of the cervical spine acquired. COMPARISON: [facility], CR, XR CERVICAL SPINE 4V OR 5V, 03/13/2020, 9:45. FINDINGS: Bones: No fractures or dislocations to the T1 level. Severe C6-C7 and C7-T1 degenerative disc disease. Moderate C5-C6 degenerative disc disease. Mild C2-C3, C3-C4 and C4-C5 degenerative disc disease. Mild to moderate facet hypertrophy throughout the cervical spine. Moderate bilateral C3-C4, C5-C6 and C6-C7 neural foraminal narrowing. Moderate right C4-C5 neural foraminal narrowing. Soft tissues: No prevertebral soft tissue swelling. IMPRESSION: 1. Multilevel degenerative disc disease. 2. Multilevel facet arthropathy. 3. No fracture. No acute osseous lesion. If symptoms and/or clinical suspicion for pathology persists, evaluation with MRI should be considered for further assessment. Dictated by: Poornima Wong MD, PhD on 02/04/2023 at 13:14 Approved by: Poornima Wong MD, PhD on 02/04/2023 at 13:16
--- NOTE | 2023-02-04 12:58 | DI.RAD.S_ITS ---
PROCEDURE: XR LUMBAR SPINE MIN 4V INDICATIONS: LOW BACK PAIN TECHNIQUE: 5 views of the lumbar spine were acquired, including bilateral oblique views. COMPARISON: [facility], CR, XR LUMBAR SPINE MIN 4V, 01/21/2022, 12:58. FINDINGS: Bones: 5 nonrib-bearing vertebrae are present. There is mild, approximately 5 millimeters of L1-L2 retrolisthesis. Convex left thoracolumbar spine scoliosis. Moderate L1-L2 and L2-L3 degenerative disc disease. Mild L3-L4, L4-L5 and L5-S1 degenerative disc disease. Mild facet hypertrophy throughout the lumbar spine. No vertebral body compression fractures. No suspicious bony lesions. Soft tissues: Overlying bowel gas pattern is normal. No suspicious soft tissue calcifications. Cholecystectomy clips. Oblique images: No pars defects. IMPRESSION: 1. Multilevel degenerative disc disease. 2. Multilevel facet arthropathy. 3. No fracture. No acute osseous lesion. If symptoms and/or clinical suspicion for pathology persists, evaluation with MRI should be considered for further assessment. 4. Convex left scoliosis. Dictated by: Poornima Wong MD, PhD on 02/04/2023 at 13:24 Approved by: Poornima Wong MD, PhD on 02/04/2023 at 13:26
== END ==
PROVIDERS: Family Provider Family Medicine; PCP Physician Assistant Medical; Referring Provider Physical Medicine & Rehabilitation; Visit Provider Physical Medicine & Rehabilitation
DX: M50.11 Cervical disc disorder with radiculopathy, high cervical region (principal); M47.22 Other spondylosis with radiculopathy, cervical region; M51.16 Intervertebral disc disorders with radiculopathy, lumbar region; M51.17 Intervertebral disc disorders with radiculopathy, lumbosacral region; M25.521 Pain in right elbow
CPT/HCPCS: 72050; 72110; 73080

== ENCOUNTER → 2023-03-05 08:30 | Outpatient (CLI) | payer MEDICARE, SELFPAY ==
--- NOTE | 2023-03-05 08:31 | DI.MRI.S_ITS ---
PROCEDURE: MR CERVICAL SPINE WO CON INDICATIONS: Cervical radiculopathy TECHNIQUE: Noncontrast sagittal T1 spin echo and T2 fast spin echo, sagittal STIR, foraminal oblique sagittal T2 fast spin echo, and axial gradient echo or T2 fast spin echo through the cervical spine. COMPARISON: [facility], MR, MR CERVICAL SPINE WO CON, 03/21/2020, 13:28. FINDINGS: Image quality: Excellent. Alignment and Curvature: Grade 1 anterior spondylolisthesis C5-6 Bone Marrow: Marrow demonstrates normal overall signal. Spinal Cord: Visualized spinal cord has normal size and signal. No cerebellar tonsillar herniation. Paraspinous Soft Tissues: No paravertebral masses. Prevertebral soft tissues are normal in thickness. C2-C3: Normal appearance. C3-C4: Disc height is maintained. Hypertrophic left facet and uncovertebral joints results in severe left foraminal stenosis. No central or right foraminal stenosis C4-C5: Disc space is preserved. Hypertrophic right facet and uncovertebral joint results in severe right foraminal stenosis. Mild central and left foraminal stenosis C5-C6: Disc space narrowing with hypertrophic facet and uncovertebral joints results in moderate bilateral foraminal stenosis. Mild central stenosis. C6-C7: Disc space narrowing posterior disc osteophyte complex results in [id number] central stenosis. Moderate bilateral foraminal stenosis C7-T1: Disc space narrowing and hypertrophic facet joints. Mild central stenosis. Moderate bilateral foraminal stenosis IMPRESSION: Multilevel degenerative disc disease and arthropathy results in varying degrees of central and foraminal stenosis including mild to moderate central stenosis C6-7 Approved by: Reed Morales M.D. on 03/05/2023 at 16:57
== END ==
PROVIDERS: Family Provider Family Medicine; PCP Physician Assistant Medical; Referring Provider Physical Medicine & Rehabilitation; Visit Provider Physical Medicine & Rehabilitation
DX: M47.22 Other spondylosis with radiculopathy, cervical region (principal); M48.02 Spinal stenosis, cervical region; M50.123 Cervical disc disorder at C6-C7 level with radiculopathy
CPT/HCPCS: 72141

== ENCOUNTER 2023-04-15 08:52 | Outpatient (CLI) | payer MEDICARE, SELFPAY ==
[2023-04-15] VITALS (8 sets, daily range): BP systolic 135–185; BP diastolic 73–96; PULSE 56–67; RESP 12–16; TEMP 36.4; O2SAT 97–99
--- NOTE | 2023-04-15 08:53 | DI.RAD.S_ITS ---
PROCEDURE: PAIN C/T FACET INJ/BLK 1ST L INDICATIONS: SPINAL STENOSIS COMPARISON: [facility], MR, MR CERVICAL SPINE WO CON, 03/05/2023, 8:59. FINDINGS: Fluoroscopic spot filming was performed to verify placement of spinal needles on the right at the C5-C6 and C6-C7 levels, as labeled on the films. Appropriate location of the needle tips was confirmed by injection of iodinated contrast. IMPRESSION: Intraprocedural examination demonstrating appropriate positions of the needles. Dictated by: hCan Colbert M.D. on 04/15/2023 at 12:07 Approved by: Chan Colbert M.D. on 04/15/2023 at 12:08
[2023-04-15] MEDS: MIDAZOLAM 2 MG/2 ML VIAL IV (09:45)
[2023-04-15] MEDS: BUPIVACAINE 0.25% (PF) VIAL 2 ML INJ (09:50)
[2023-04-15] MEDS: DEXAMETHASONE 10 MG/ML VIAL 20 MG INJ (09:50)
[2023-04-15] MEDS: iopamidoL 15 ML VIAL 3 ML INJ (09:51)
--- NOTE | 2023-04-15 09:58 | P.PCN_ITS ---
Date/Time/Diagnoses Date of procedure: 04/15/23 Time of procedure: 09:58 Pre-procedure diagnosis: 1. FACET ARTHROPATHY 2. AXIAL NECK PAIN Post-procedure diagnosis: same Procedure Notes Procedure: 1. FLUOROSCOPICALLY GUIDED, CONTRAST-CONTROLLED RIGHT C5/6 AND C6/7 FACET JOINT INJECTIONS WITH CONSCIOUS SEDATION. Indications: Jacek is referred by YAN Porter for treatment of Axial Neck Pain Physician: Justin Costello Total Fluoroscopy time (seconds): 4 Total sedation minutes: 10 Complications: none Procedure in detail & Post-procedure care: DESCRIPTION OF PROCEDURE Fluoroscopically guided, contrast-controlled right C5/6 and C6/7 facet joint injections with conscious sedation. Following review of allergy and review of potential side effects and complications, including, but not necessarily limited to, infection, allergic reaction, local tissue breakdown, stroke, temporary or permanent nerve injury and paralysis, the patient indicated that the patient understood and agreed to proceed. An informed consent document was signed by the patient, witnessed by a nurse, and placed in the patient's chart. Additionally, other treatment options including medications, modalities, and physical therapy were reviewed with the patient. After review of previous anaesthesic history and IV conscious sedation the patient was deemed safe to proceed with today?s procedure with IV conscious sedation as ASA class II designation. Safety time-out was performed to confirm patient ID, procedure to be performed and site of procedure. IV sedation was accomplished with a combination of 2mg of Versed was administered by the RN after DO order, titrated to patient comfort during the course of the procedure while the patient remained responsive to all verbal commands In the prone position, following sterile prep and drape of the cervical spine region, the posterior aspect of the right C5/6 and C6/7 facet joints were identified fluoroscopically. The skin was anesthetized via a 25-gauge 1.5-inch needle with 1% lidocaine solution into the corresponding facet joints. At this point, a 25-gauge 2.5-inch spinal needle was atraumatically introduced and advanced under fluoroscopic guidance into the corresponding facet joints. Following negative aspiration, injections of approximately 0.2-cc of Isovue 200 confirmed interarticular placement without vascular uptake. At this point, a total of 1cc including 0.5cc or 5mg of dexamethasone combined with 0.5 cc of 1% lidocaine solution was injected without complication into each of the corresponding facet joints. The procedure tolerated the procedure well without signs or symptoms of complications prior to transfer to the recovery area continued monitoring without incident. The patient was then transferred to the recovery area where they were observed for an appropriate period of time after the injection. The patient reported a VAS score of 7 prior to the procedure and a post- procedure VAS of 1. POST OP INSTRUCTIONS They were provided a Pain Log to continue to record their response to the target-specific procedure prior to their follow-up visit with their referring physician. Additionally, specific post-injection care instructions and a contact number to our office were provided if concerns arise regarding possible complications associated with the procedure are suspected.
== END 2023-04-15 10:21 | disposition home or self-care (01) ==
LOC: RAD 08:53
PROVIDERS: Family Provider Family Medicine; PCP Physician Assistant Medical; Referring Provider Physical Medicine & Rehabilitation; Visit Provider Physical Medicine & Rehabilitation
DX: M47.812 Spondylosis without myelopathy or radiculopathy, cervical region (principal); M54.2 Cervicalgia
CPT/HCPCS: 64490; 64491; 99152; J1100; J2250; J3490

== ENCOUNTER → 2023-12-29 12:14 | Outpatient (CLI) | payer MEDICARE, SELFPAY ==
--- NOTE | 2023-12-29 13:12 | DI.MRI.S_ITS ---
PROCEDURE: MR LUMBAR SPINE WO CON INDICATIONS: SPINAL STENOSIS TECHNIQUE: Noncontrast sagittal T1 spin echo and T2 fast echo, sagittal STIR, and T2 fast spin echo through the lumbar spine. In cases with scoliosis, additional coronal T2 fast spin echo may be performed. COMPARISON: [facility], MR, MR LUMBAR SPINE WITHOUT CONTRAST, 07/17/2022, 13:09. [facility], MR, L-SPINE WITHOUT CONTRAST, 10/08/2013, 10:06. [facility], CR, XR LUMBAR SPINE FLEXION EXTENSION, 06/26/2023, 9:19. [facility], CR, XR SCOLIOSIS STUDY, 06/26/2023, 9:19. FINDINGS: Image quality: This examination is limited by involuntary motion artifact. Alignment and Curvature: Moderate levoconvex lumbar scoliosis is seen. There is minimal retrolisthesis at L1-L2 and L2-L3. Minimal retrolisthesis is also seen at L5-S1. Bone Marrow: Marrow is of normal overall signal. No acute vertebral body compression fractures. Spinal Cord: Conus medullaris terminates at the L1 level. Visualized cord demonstrates normal signal and size. Paraspinous Soft Tissues: No paravertebral masses. T12-L1: Moderate loss of disc height is seen. Loss of disc signal is seen. No significant neural foraminal or central canal narrowing can be seen. Stable from the prior study. L1-L2: At least moderate loss disc height and disc signal can be seen. There is moderate disc bulge seen, which is eccentric to the right. There is a superimposed central disc protrusion. Mild facet joint hypertrophy is seen. There is moderate left-sided and at least moderate right-sided neural foraminal narrowing. There is [id number] central canal narrowing. Stable from the prior study. L2-L3: At least moderate loss of disc height and disc signal can be seen. Reactive marrow endplate changes are seen posteriorly, which are hypointense on T1-weighted imaging and hyperintense on T2 weighted imaging, which is most consistent with edema (Modic type I changes). At least moderate disc bulge is seen at this level. There is a mild central disc extrusion, with inferior migration of the disc material. Moderate facet joint hypertrophy is seen. There is moderate to severe right-sided and at least moderate left-sided neural foraminal narrowing. There is a degree of compression seen upon the exiting nerve roots. Moderate central canal narrowing is seen. When comparison is made with the prior images, these findings are similar. L3-L4: The disc height is well-preserved. Loss of disc signal is seen at this level. Moderate disc bulge is seen, which is eccentric to the right. There is a superimposed central disc protrusion. There is a focal annular fissure seen posteriorly. Moderate facet joint hypertrophy is seen. There is at least moderate bilateral neural foraminal narrowing seen, left worse than right. There is a degree of compression seen upon the exiting nerve roots. Moderate central canal narrowing is seen. This level is improved compared to the prior examination, with interval regression of the previously seen disc extrusion, with associated improved central canal narrowing. L4-L5: [id number] loss of disc height and disc signal can be seen posteriorly. Mild to moderate disc bulge is seen, with a central disc protrusion. Moderate facet hypertrophy can be seen, left worse than right. There is moderate left-sided neural foraminal narrowing. Moderate to severe right-sided neural foraminal narrowing is seen, with a degree of compression upon the exiting left L4 nerve root. Mild to moderate central canal narrowing is seen. When comparison is made with the prior images, these findings are similar. L5-S1: Moderate loss of disc height is seen. Loss of disc signal is seen. Mild to moderate disc bulge is seen, which is slightly eccentric to the right. There is a mild central disc protrusion. Prior right hemilaminectomy change can be seen. There is at least moderate right-sided and moderate to severe left-sided neural foraminal narrowing. There is a degree of compression seen upon the exiting nerve roots. No central canal narrowing is seen. Stable from the prior study. IMPRESSION: Multiple levels of significant lumbar spine degenerative change can be seen. Since the prior MRI, there has been interval regression of the previously seen disc extrusion at L3-L4, with improvement in the degree of central canal narrowing at this level. The degenerative changes elsewhere appear similar compared to the prior. Moderate levoconvex lumbar scoliosis. Dictated by: Chan Colbert M.D. on 12/29/2023 at 13:19 Approved by: Chan Colbert M.D. on 12/29/2023 at 13:27
== END ==
PROVIDERS: Family Provider Family Medicine; PCP Physician Assistant Medical; Referring Provider Physical Medicine & Rehabilitation; Visit Provider Physical Medicine & Rehabilitation
DX: M48.062 Spinal stenosis, lumbar region with neurogenic claudication (principal); M48.07 Spinal stenosis, lumbosacral region; M47.816 Spondylosis without myelopathy or radiculopathy, lumbar region; M51.36 Other intervertebral disc degeneration, lumbar region; M51.37 Other intervertebral disc degeneration, lumbosacral region; M51.26 Other intervertebral disc displacement, lumbar region; M51.27 Other intervertebral disc displacement, lumbosacral region; M41.9 Scoliosis, unspecified
CPT/HCPCS: 72148

== ENCOUNTER → 2023-12-29 12:16 | Outpatient (CLI) | payer MEDICARE, SELFPAY ==
--- NOTE | 2023-12-29 12:17 | DI.ECHO.S_ITS ---
[facility] +---------+ [facility] : : [address] : : [place] : : [id number] : : Phone: [phone] Echocardiogram Report + + :Name: YOKO ARTIS Study Date: 12/29/2023 Height: 70 in : :Hospital ReadingLocation: Weight: 162 lb : : Gender: Male BSA: 1.9 m2 : :: 1945 Age: 78 yrs BP: 142/88 mmHg: :Reason For Study: ASCENDING AORTA DILATION : :Ordering Physician: SUGAR, : :MARTHA Performed By: Oralia Zhu : :Referring: MARTHA WOOTEN : + + Interpretation Summary The left ventricle is normal in size and wall thickness. The left ventricular ejection fraction is normal. The ejection fraction is estimated to be 60-65%. No significant change in LVEF from the previous study. The right ventricle is normal in size and function. There is mild to moderate mitral regurgitation. Compared to the prior echo study, there has been no change in the severity of mitral regurgitation. The aortic valve is bicuspid. The aortic valve is mildly calcified. The peak aortic velocity is 1.9 m/sec. The aortic valve mean gradient is 9 mmHg. The peak aortic velocity on the previous exam was 1.78 m/sec. There is no hemodynamically significant valvular aortic stenosis. There is mild tricuspid regurgitation. Unchanged TR. The right ventricular systolic pressure is estimated to be at least 24 mmHg based on an estimated right atrial pressure of 3 mm Hg. Ascending aorta diameter about 4.3 cm. In August 17, 2019:The ascending aorta was 4.7 cm in diameter. Moderate atherosclerotic plaque(s) in the aortic arch. There is mild luminal irregularity and echogenicity in the abdominal aorta, suggestive of aortic atherosclerotic disease. Procedure: A two-dimensional transthoracic echocardiogram with color flow and Doppler was performed. The study quality was technically adequate. Comparison is made with the echocardiogram of 01/09/2023. The patient was in sinus bradycardia with heart rates between 51-55 bpm during the exam. Left Ventricle: The left ventricle is normal in size and wall thickness. There is no thrombus. The ejection fraction is estimated to be 60-65%. The left ventricular ejection fraction is normal. There are no focal wall motion abnormalities. Diastolic parameters suggest probable normal left ventricular diastolic function and normal filling pressures. Right Ventricle: The right ventricle is normal in size and function. The right ventricular systolic function is normal. Atria: The left atrial size is normal. Right atrial size is normal. There is no Doppler evidence for an interatrial shunt. Mitral Valve: The mitral valve leaflets appear borderline thickened, but open well. There is mild mitral annular calcification. Redundant elongated chordae are noted. There is mild to moderate mitral regurgitation. Compared to the prior echo study, there has been no change in the severity of mitral regurgitation. Aortic Valve: The aortic valve is bicuspid. The aortic valve is mildly calcified. The peak aortic velocity is 1.9 m/sec. The aortic valve mean gradient is 9 mmHg. The calculated aortic valve area is 1.6 cm2. The peak aortic velocity on the previous exam was 1.78 m/sec. There is no hemodynamically significant valvular aortic stenosis. There is trace aortic regurgitation. Tricuspid Valve: The tricuspid valve is normal in structure and function. There is mild tricuspid regurgitation. The right ventricular systolic pressure is estimated to be at least 24 mmHg based on an estimated right atrial pressure of 3 mm Hg. Compared to the prior echo exam, there has been no change in TR severity. Pulmonic Valve: The pulmonic valve leaflets are thin and pliable; valve motion is normal. There is trace pulmonic regurgitation. Great Vessels: The aortic root is normal size. The ascending aorta is mild- moderately enlarged. Moderate atherosclerotic plaque(s) in the aortic arch. There is mild luminal irregularity and echogenicity in the abdominal aorta, suggestive of aortic atherosclerotic disease. The IVC is of normal diameter and collapses greater than 50% with a sniff. This suggests a low right atrial pressure of 3 mm Hg. Pericardium/ Pleura There is no pericardial effusion. There is no pleural effusion. MMode/2D Measurements & Calculations LVIDd: 5.4 cm LVOT diam: 2.0 cm LVIDs: 3.6 cm Ao root diam: 3.7 cm FS: 34.0 % asc Aorta Diam: 4.3 cm IVSd: 0.91 cm LVPWd: 0.75 cm LV langley. diameter/BSA (cm/m^2): 2.8 LV sys. diameter/BSA (cm/m^2): 1.9 LA A2 area: 16.8 cm2 RA long axis: 4.9 cm LA A4 area: 9.5 cm2 RA area: 15.9 cm2 LA length (vol): 4.0 cm RA vol: 43.6 ml LA vol: 33.8 ml RA : 22.8 ml/m2 LA vol index: 17.7 ml/m2 IVC diam: 1.5 cm RVD1 (basal): 3.8 cm TAPSE: 2.5 cm Doppler Measurements & Calculations Ao V2 max: 191.8 cm/sec LVOT Max Elgin: 98.3 cm/sec Ao V2 mean: 143.1 cm/sec LV V1 max P.9 mmHg Ao max P.4 mmHg LV V1 VTI: 22.2 cm Ao mean P.9 mmHg DIETER(I,D): 1.5 cm2 Ao V2 VTI: 47.1 cm DIETER(V,D): 1.6 cm2 sev ratio: 0.47 DIETER indexed to BSA (cm^2/m^2): 0.77 MV E max elgin: 60.1 cm/sec TR max elgin: 231.2 cm/sec MV A max elgin: 45.3 cm/sec TR max P.4 mmHg MV E/A: 1.3 PA V2 max: 95.5 cm/sec Med Peak E' Elgin: 8.8 cm/sec PA V2 mean: 69.9 cm/sec E/E' med: 6.8 PA mean P.1 mmHg Lat Peak E' Elgin: 9.4 cm/sec PA pr(Accel): 41.3 mmHg E/E' lat: 6.4 E/e' average: 6.6 MV dec time: 0.23 sec SV(LVOT): 68.9 ml Reading Physician:12:26 PM
== END ==
PROVIDERS: Family Provider Family Medicine; PCP Physician Assistant Medical; Referring Provider Internal Medicine Cardiovascular Disease; Visit Provider Internal Medicine Cardiovascular Disease
DX: Q23.1 Congenital insufficiency of aortic valve (principal); I77.810 Thoracic aortic ectasia; I70.0 Atherosclerosis of aorta; I77.89 Other specified disorders of arteries and arterioles; M48.062 Spinal stenosis, lumbar region with neurogenic claudication; M48.07 Spinal stenosis, lumbosacral region; M47.816 Spondylosis without myelopathy or radiculopathy, lumbar region; M47.817 Spondylosis without myelopathy or radiculopathy, lumbosacral region; M51.36 Other intervertebral disc degeneration, lumbar region; M51.37 Other intervertebral disc degeneration, lumbosacral region; M51.26 Other intervertebral disc displacement, lumbar region; M51.27 Other intervertebral disc displacement, lumbosacral region
CPT/HCPCS: 72148; 93306

== ENCOUNTER → 2025-01-31 11:58 | Outpatient (CLI) | payer MEDICARE, SELFPAY ==
--- NOTE | 2025-01-31 11:59 | DI.ECHO.S_ITS ---
[facility] +---------+ [facility] : : [address] : : [place] : : [id number] : : Phone: [phone] Echocardiogram Report + + :Name: YOKO ARTIS Study Date: 01/31/2025 Height: 70 in : :[facility] ReadingLocation: Weight: 155 lb : : Gender: Male BSA: 1.9 m2 : :: 1945 Age: 80 yrs BP: 126/74 mmHg: :Reason For Study: BICUSPID AORTIC VALVE : :Ordering Physician: SUGAR, : :MARTHA Performed By: Oralia Zhu : :Referring: MARTHA WOOTEN : + + Interpretation Summary The left ventricle is normal in size. The left ventricular ejection fraction is normal. The ejection fraction is estimated to be 60-65%. No Significant change in LVEF from the previous study. The right ventricle is normal size. The right ventricular systolic function is normal. There is mild mitral regurgitation. Previously mild to moderate MR. The aortic valve is bicuspid. The peak aortic velocity is 2.7 m/sec. The peak aortic velocity on the previous exam was 1.9 m/sec. The aortic valve mean gradient is 16 mmHg. The calculated aortic valve area is 1.8 cm2. There is mild aortic stenosis. There is mild tricuspid regurgitation. Compared to the prior echo exam, there has been no change in TR severity. The right ventricular systolic pressure is estimated to be at least 28 mmHg based on an estimated right atrial pressure of 3 mm Hg. Mild atherosclerotic plaque(s) in the aortic arch. Previously moderate plaque. The ascending aorta could not be visualized. In December 29, 2023, ascending aorta diameter was 4.3 cm. In August 2019, about 4.7 cm. Procedure: A two-dimensional transthoracic echocardiogram with color flow and Doppler was performed. The study quality was technically adequate. Comparison is made with the echocardiogram of 12/29/2023. The patient was in sinus rhythm with heart rates between 54-77 bpm during the exam. The patient had occasional PACs during the exam. Left Ventricle: The left ventricle is normal in size. Left ventricular wall thickness is borderline increased. There is no thrombus. A false chord is noted (normal variant). The ejection fraction is estimated to be 60-65%. The left ventricular ejection fraction is normal. There has been no significant change since the previous exam. There are no focal wall motion abnormalities. MV E/A: 0.94 Med Peak E' Elgin: 8.8 cm/sec E/E' med: 7.4. Right Ventricle: The right ventricle is normal size. The right ventricular systolic function is normal. Atria: The left atrial size is normal. There has been no significant change since the previous study. Right atrial size is normal. There is no Doppler evidence for an interatrial shunt. Mitral Valve: The mitral valve leaflets appear to open well. There is mild mitral annular calcification. The mitral valve leaflets appear mildly thickened. Redundant elongated chordae are noted. There is mild mitral regurgitation. Aortic Valve: The aortic valve is bicuspid. Mild to moderately calcified. The peak aortic velocity is 2.7 m/sec. The aortic valve mean gradient is 16 mmHg. The calculated aortic valve area is 1.8 cm2. The peak aortic velocity on the previous exam was 1.9 m/sec. There is mild aortic stenosis. There is trace aortic regurgitation. Tricuspid Valve: The tricuspid valve leaflets are thin and pliable. There is mild tricuspid regurgitation. The right ventricular systolic pressure is estimated to be at least 28 mmHg based on an estimated right atrial pressure of 3 mm Hg. Compared to the prior echo exam, there has been no change in TR severity. Pulmonic Valve: The pulmonic valve leaflets are thin and pliable; valve motion is normal. There is no pulmonic valvular regurgitation. Great Vessels: The aortic root is normal size. The ascending aorta could not be visualized. Mild atherosclerotic plaque(s) in the aortic arch. The IVC is of normal diameter and collapses greater than 50% with a sniff. This suggests a low right atrial pressure of 3 mm Hg. Pericardium/ Pleura There is no pericardial effusion. There is no pleural effusion. MMode/2D Measurements & Calculations LVIDd: 4.3 cm LVOT diam: 2.3 cm LVIDs: 2.7 cm Ao root diam: 3.7 cm FS: 36.7 % Ao Arch Diam (Prox Trans): 2.6 cm IVSd: 1.1 cm LVPWd: 0.77 cm LV langley. diameter/BSA (cm/m^2): 2.3 LV sys. diameter/BSA (cm/m^2): 1.5 LA A2 area: 15.7 cm2 RA long axis: 4.8 cm LA A4 area: 12.4 cm2 RA area: 14.0 cm2 LA length (vol): 4.1 cm RA vol: 34.9 ml LA vol: 40.3 ml RA : 18.6 ml/m2 LA vol index: 21.5 ml/m2 IVC diam: 1.5 cm RVD1 (basal): 3.8 cm RVD2 (mid): 3.1 cm TAPSE: 2.3 cm Doppler Measurements & Calculations Ao V2 max: 265.7 cm/sec LVOT Max Elgin: 118.4 cm/sec Ao V2 mean: 177.9 cm/sec LV V1 max P.6 mmHg Ao max P.3 mmHg LV V1 VTI: 26.2 cm Ao mean P.5 mmHg DIETER(I,D): 2.0 cm2 Ao V2 VTI: 54.1 cm DIETER(V,D): 1.8 cm2 sev ratio: 0.48 DIETER indexed to BSA (cm^2/m^2): 1.0 MV E max elgin: 65.1 cm/sec TR max elgin: 249.6 cm/sec MV A max elgin: 69.3 cm/sec TR max P.9 mmHg MV E/A: 0.94 PA V2 max: 117.8 cm/sec Med Peak E' Elgin: 8.8 cm/sec PA V2 mean: 73.6 cm/sec E/E' med: 7.4 PA mean P.5 mmHg Lat Peak E' Elgin: 13.4 cm/sec PA pr(Accel): 31.5 mmHg E/E' lat: 4.9 E/e' average: 6.1 MV dec time: 0.22 sec SV(LVOT): 106.2 ml Reading Physician:05:46 PM
== END ==
LOC: ECHO 11:58
PROVIDERS: PCP Physician Assistant Medical; Referring Provider Internal Medicine Cardiovascular Disease; Visit Provider Internal Medicine Cardiovascular Disease
DX: Q23.1 Congenital insufficiency of aortic valve (principal); I77.810 Thoracic aortic ectasia; I08.3 Combined rheumatic disorders of mitral, aortic and tricuspid valves; I70.0 Atherosclerosis of aorta
CPT/HCPCS: 93306